=== PATIENT | female | born 1985 | race Caucasian/White ===

== ENCOUNTER → 2019-05-08 | Outpatient (CLI) | payer BC | LOC: CARD 12:31 | PROVIDERS: ATTEND Family Medicine | DX: Z82.79 Family history of other congenital malformations, deformations and chromosomal abnormalities (principal) | CPT/HCPCS: 93306 ==

== ENCOUNTER 2019-05-27 06:00 | Inpatient (IN) | payer BC, MEDICAID ==
[2019-05-27] VITALS (50 sets, daily range): BP systolic 92–135; BP diastolic 47–73
[~2019-05-27] VITALS: Ht 170.2 cm; Wt 84.6 kg
--- NOTE | 2019-05-27 06:45 | NUR ---
DORY ROBLES presented to unit via ambulation from ED, accompanied by SO , with plan of a 39 WEEKS AT INDUCTION. DORY ROBLES weighed, gowned, voided, and to bed. EFHM and TOCO applied, VS taken. DORY ROBLES oriented to bed controls, call light, TV, heat, and A/C controls.
--- NOTE | 2019-05-27 07:10 | NUR ---
THIS RN RECEIVED PT REPORT FROM JOAN MALDONADO. JOAN STATES SHE TALKED TO DR LONG AT 0705 AND RECEIVED TELE INDUCTION ORDERS. DR LONG WANTS TO START PITOCIN, PT MAY GET EPIDURAL. GIVE 25 MG OF BENADRYL 30MIN BEFORE ADMIN OF VANCOMYCIN FOR GBS +
--- NOTE | 2019-05-27 07:15 | NUR ---
THIS RN INTRODUCES SELF TO PT AND SO. DISCUSSES PLAN OF CARE. PHYSICAL ASSESSMENT COMPLETE, VSS. NEEDS ADDRESSED. CALL LIGHT WITHIN REACH.
--- NOTE | 2019-05-27 07:30 | NUR ---
RN CALLS [facility] FOR RECORDS
[2019-05-27] MEDS ORDERED: OXYTOCIN/NORMAL SALINE 500 ML IV SCH ×2 (07:35→18:30)
[2019-05-27] MEDS ORDERED: D5 LR IV SOLUTION 1,000 ML IV ONE (07:41)
[2019-05-27] MEDS ORDERED: diphenhydrAMINE 50 MG/ML INJ (BENADRYL) IV NR (07:45)
[2019-05-27] MEDS ORDERED: VANCOMYCIN INJECTION 1,000 MG in NS (IVPB) 250 ML IV SCH (07:45)
[2019-05-27] MEDS ORDERED: diphenhydrAMINE 50 MG/ML INJ (BENADRYL) IM NR (07:45)
[2019-05-27 08:25] LABS: BASOPHILS % (AUTO) 0 % (0-10); EOSINOPHILS # (AUTO) 0.1 10^3/uL (0.0-0.3); EOSINOPHILS % (AUTO) 1 % (0-10); HEMATOCRIT 26 % (35-52); HEMOGLOBIN 7.5 G/DL (11.5-16.0); LYMPHOCYTES # (AUTO) 1.8 X 10^3 (1.0-4.0); LYMPHOCYTES % (AUTO) 19 % (12-44); MEAN CORPUSCULAR HEMOGLOBIN 21 PG (25-34); MEAN CORPUSCULAR HGB CONC 29 G/DL (32-36); MEAN CORPUSCULAR VOLUME 71 FL (80-99); MEAN PLATELET VOLUME 9.9 FL (7.4-10.4); MONOCYTES # (AUTO) 0.7 X 10^3 (0.0-1.0); MONOCYTES % (AUTO) 7 % (0-12); NEUTROPHILS # (AUTO) 6.9 X 10^3 (1.8-7.8); NEUTROPHILS % (AUTO) 73 % (42-75); PLATELET COUNT 236 10^3/uL (130-400); RED CELL DISTRIBUTION WIDTH 17.9 % (10.0-14.5); WHITE BLOOD COUNT 9.4 10^3/uL (4.3-11.0)
[2019-05-27] MEDS: D5 LR IV SOLUTION 1,000 ML IV SCH ×2 (08:32→16:20)
--- NOTE | 2019-05-27 09:00 | NUR ---
RN CALLS [facility] AGAIN FOR RECORDS, CORRECT FAX NUMBER HAS BEEN GIVEN.
[2019-05-27] MEDS ORDERED: SUFENTA 0.6MCG/ML BUPIVA 0.125 100 ML ONE (10:23)
--- NOTE | 2019-05-27 10:30 | NUR ---
RN CALLS [facility] AGAIN FOR RECORDS. STILL HAVE NOT RECEIVED.
[2019-05-27] MEDS ORDERED: fentaNYL INJECTION 100 MCG/2 ML AMP ONE (10:33)
[2019-05-27] MEDS ORDERED: LIDOCAINE PF 2% 5 ML (XYLOCAINE) VIAL ONE (10:33)
[2019-05-27] MEDS ORDERED: BUPIVACAINE 0.25% 30 ML (SENSORCAINE) VIAL ONE (10:33)
[2019-05-27] MEDS ORDERED: LACTATED RINGERS 1,000 ML IV ONE ×2 (10:58)
[2019-05-27] MEDS ORDERED: NALOXONE 0.4 MG/ML 1 ML (NARCAN) VIAL IV PRN (11:00)
[2019-05-27] MEDS ORDERED: EPIDURAL (SUFENTA 0.6MCG/ML BUPIVA 0.125%) 100 ML BAG EPI PRN (11:00)
[2019-05-27] MEDS ORDERED: ONDANSETRON 4 MG/2 ML (SDV) Z0FRAN IV PRN (11:00)
--- NOTE | 2019-05-27 13:03 | NUR ---
THIS RN CALLS DR LONG WITH UPDATED PT REPORT. PT COMFORTABLE WITH EPIDURAL, PITOCIN RATE AT 16 CURRENTLY. UC PATTERN AND FHT DESCRIBED. RECENT SVE /-2 WITH FOREBAG THAT MAY NEED TO BE RE-RUPTURED. DR ARTHUR HAD DIFFICULT TIME BREAKING WATER THIS AM AND HAVE HAD SCANT AMOUNT OF FLUID RETURN. DR LONG STATES SHE WILL SEE IF DR ARTHUR IS STILL IN HOSPITAL TO RE-BREAK WATER. IF NOT, THEN DR LONG WILL COME AFTER CLINIC TO AR[facility] AGAIN. NO NEW ORDERS RECEIVED.
--- NOTE | 2019-05-27 14:30 | NUR ---
[facility] CALLED BY THIS RN FOR RECORDS.
--- NOTE | 2019-05-27 15:22 | NUR ---
DR LONG CALLED BY THIS RN WITH UPDATED PT REPORT. 2 WITH FOREBAG, NO PRESSURE ON CERVIX. DR SAMS IS ON LD FLOOR FOR A DELIVERY, THIS RN WILL ASK DR SAMS TO BREAK WATER ON DR SOLIS PT, DR LONG STILL IN [facility]. DR LONG PLANS TO SEE PT AFTER HER CLINIC. NO NEW ORDERS AT THIS TIME.
--- NOTE | 2019-05-27 16:06 | Progress Note ---
Standard Progress Note Progress Notes/Assess & Plan Date Seen by a Provider: May 27, 2019 Time Seen by a Provider: 15:50 Progress/Assessment & Plan I was asked to Artificially Rupture Membranes of Ms. Luna by Dr. Snow. Cervix: 4 cm/50%/-3 Vertex/AROM (fluid clear). ARLETH Cabello DO May 27, 2019 16:06
--- NOTE | 2019-05-27 16:30 | NUR ---
RN HAS NOT RECEIVED RECORDS FROM [facility] REGARDLESS OF MULTIPLE ATTEMPTS. AFTER HOURS AT THIS TIME. WILL PASS ON TO ONCOMING SHIFT ABOUT SITUATION.
--- NOTE | 2019-05-27 17:14 | NUR ---
DR LONG CALLED BY THIS RN WITH UPDATED PT REPORT. SVE /-2 WITH LARGE AMOUNT OF FLUID RETURN. PT STATES THAT SHE FEELS DIFFERENT, C/O NAUSEA, AND GETTING SHAKY. DR LONG STATES PT TRANSITIONED VERY FAST WITH HER LAST DELIVERY. DR LONG WILL HEAD THIS WAY NOW.
--- NOTE | 2019-05-27 17:59 | History & Physical-OB ---
OB - Chief Complaint & HPI Date/Time Date of Admission: Date of Admission: May 27, 2019 at 06:32 Date seen by a Provider: May 27, 2019 Time Seen by a Provider: 17:57 Chief Complaint/History OB-Reason for Admission/Chief: Induction of Labor Hx : 3 Hx Para: 2 Expected Date of Delivery: Jun 03, 2019 Gestational Age in Weeks: 39 Gestational Age in Days: 0 Indication for induction: maternal discomfort Admission Nurse Assessment Rev: Yes Allergies and Home Medications Allergies Coded Allergies: Penicillins (Verified Allergy, Severe, rash, 05/27/19) Home Medications No Active Prescriptions or Reported Meds Patient Home Medication List Home Medication List Reviewed: Yes OB - History Hx of Present Care: Yes Ultrasounds: Normal mid trimester US Obstetrical Complications: None Medical Complications: None Delivery History Adverse Rxn to Tranfusion: No Patient Past Medical History previously healthy Social History/Family History Recent Infectious Disease Expo: No Alcohol Use: Denies Use Recreational Drug Use: No Immunizations Date of Influenza Vaccine: May 23, 2019 OB - Admission Exam Physical Exam Vitals: Vital Signs 05/27/19 05/27/19 05/27/19 11:30 13:00 14:15 Temp 36.7 Pulse 67 Resp 18 B/P (MAP) 107/60 (76) Pulse Ox 100 O2 Delivery Room Air HEENT: NCAT Heart: Rhythm Normal Lungs: Clear Abdomen: Gravid Extremities: Normal Reflexes: Normal Cervical Dilatation: 7cm Effacement: 100% Station: -1 Membranes: Ruptured Amniotic Fluid: Clear Heart Rate: 130's Accelerations: Accelerations Present Decelerations: Variable Decelerations Short Term Variability: Present Electric Distribution Checker Variability: Average (6-25) Contractions on Admission: < 5 Minutes Apart Labs Laboratory Tests Test 05/27/19 08:10 Range/Units White Blood Count 9.4 4.3-11.0 10^3/uL Red Blood Count 3.62 L 4.35-5.85 10^6/uL Hemoglobin 7.5 L 11.5-16.0 G/DL Hematocrit 26 L 35-52 % Mean Corpuscular Volume 71 L 80-99 FL Mean Corpuscular Hemoglobin 21 L 25-34 PG Mean Corpuscular Hemoglobin Concent 29 L 32-36 G/DL Red Cell Distribution Width 17.9 H 10.0-14.5 % Platelet Count 236 130-400 10^3/uL Mean Platelet Volume 9.9 7.4-10.4 FL Neutrophils (%) (Auto) 73 42-75 % Lymphocytes (%) (Auto) 19 12-44 % Monocytes (%) (Auto) 7 0-12 % Eosinophils (%) (Auto) 1 0-10 % Basophils (%) (Auto) 0 0-10 % Neutrophils # (Auto) 6.9 1.8-7.8 X 10^3 Lymphocytes # (Auto) 1.8 1.0-4.0 X 10^3 Monocytes # (Auto) 0.7 0.0-1.0 X 10^3 Eosinophils # (Auto) 0.1 0.0-0.3 10^3/uL Basophils # (Auto) 0.0 0.0-0.1 10^3/uL OB - Assessment/Plan/Diagnosis Assessment Assessment: group B positive strep, induction of labor Admission Dx Induction of labor at 39 0/7 wga. GBS positive. Admission Status: Inpatient Order (span 2 midnights) Reason for Inpatient Admission: Induction of labor. Plan Induction Method: per Pitocin Protocol RANI LONG MD May 27, 2019 17:59
[2019-05-27] MEDS ORDERED: TETANUS,DIPTH,PERTUSS P/F (BOOSTRIX) 0.5 ML VIAL IM ONE (18:30)
[2019-05-27] MEDS ORDERED: WITCH HAZEL(TUCKS) 40 EA JAR TOP PRN (18:30)
[2019-05-27] MEDS ORDERED: MEASLES,MUMPS,RUBELLA 1 EA INJ SQ ONE (18:30)
[2019-05-27] MEDS ORDERED: BENZOCAINE/MENTHOL (DERMOPLAST) 56 ML CAN TP PRN (18:30)
--- NOTE | 2019-05-27 18:35 | OB Labor & Delivery Record ---
Vag Delivery Note Vag Delivery Note Date of Delivery: 05/27/19 Preoperative Diagnosis: Marti Luna is a (33 /Para 3 / 2,Gestational Age (wks)39with [0 days] Postoperative Diagnosis: Same Surgeon: RANI LONG Aircraft Armament Mechanic: [none] Anesthesia: [epidural] Delivery Type: [] Findings: [] Viable [male] infant, apgars [8/9], weight [9 pounds 14 ounces] Lacerations: Intact placenta with 3 vessel cord. 2 loose nuchal cords Estimated Blood Loss: [350] ml Complications: None Condition: Stable Description of Procedure: The patient is a 33 year old female who presented [for induction of labor]. She was admitted and informed consent was obtained. Her labor course was remarkable for [nothing] She progressed to complete dilatation and began to push. She was then set up for delivery. The infant's head was delivered atraumatically in the [OA] position. The shoulders and remainder of the infant's body were then delivered without difficulty. Upon delivery, the head was held below the level of the perineum and the mouth and nares were bulb suctioned. The cord was doubly clamped and cut after 60 seconds on maternal abdomen. An intact placenta with 3-vessel cord delivered via Nirav and there was found to be minimal bleeding.~ Vigorous fundal massage was performed and the fundus was found to be firm. IV oxytocin was given. Examination of the vagina and perineum revealed no lacerations. Following the repair, sponge, instrument and needle counts were correct. Mom and baby were both in stable condition in the labor suite. Vitals - Labs Vital Signs - I&O Vital Signs Date Time Temp Pulse Resp B/P (MAP) Pulse Ox O2 Delivery O2 Flow Rate FiO2 05/27/19 14:15 36.7 67 107/60 (76) Room Air 05/27/19 14:00 69 101/55 (70) Room Air 05/27/19 13:45 36.3 61 106/55 (72) Room Air 05/27/19 13:30 61 102/57 (72) Room Air 05/27/19 13:15 65 110/56 (74) Room Air 05/27/19 13:00 36.9 63 18 110/58 (75) Room Air 05/27/19 12:45 63 111/57 (75) Room Air 05/27/19 12:30 65 112/55 (74) Room Air 05/27/19 12:15 82 100/53 (69) Room Air 05/27/19 12:00 36.9 69 108/52 (70) Room Air 05/27/19 11:45 71 16 120/58 (78) Room Air 05/27/19 11:30 71 123/56 (78) 100 Room Air 05/27/19 11:15 77 99/56 (70) Room Air 05/27/19 11:00 71 114/58 (76) Room Air 05/27/19 10:45 78 135/63 (87) Room Air 05/27/19 10:30 71 121/68 (85) Room Air 05/27/19 10:15 37.0 67 18 117/65 (82) Room Air 05/27/19 10:00 Room Air 05/27/19 09:45 74 112/55 (74) Room Air 05/27/19 09:30 70 98/52 (67) Room Air 05/27/19 09:15 67 96/54 (68) Room Air 05/27/19 09:00 75 16 112/63 (79) Room Air 05/27/19 07:30 36.9 76 16 100 Room Air Labs Laboratory Tests 05/27/19 08:10: White Blood Count 9.4, Red Blood Count 3.62L, Hemoglobin 7.5L, Hematocrit 26L, Mean Corpuscular Volume 71L, Mean Corpuscular Hemoglobin 21L, Mean Corpuscular Hemoglobin Concent 29L, Red Cell Distribution Width 17.9H, Platelet Count 236, Mean Platelet Volume 9.9, Neutrophils (%) (Auto) 73, Lymphocytes (%) (Auto) 19, Monocytes (%) (Auto) 7, Eosinophils (%) (Auto) 1, Basophils (%) (Auto) 0, Neutrophils # (Auto) 6.9, Lymphocytes # (Auto) 1.8, Monocytes # (Auto) 0.7, Eosinophils # (Auto) 0.1, Basophils # (Auto) 0.0 RANI LONG MD May 27, 2019 18:35
--- NOTE | 2019-05-27 19:00 | NUR ---
180: ROOM SET UP FOR DELIVERY, DR LONG AT BEDSIDE. 1806: POONAM GALLARDO, 750 ML OUT OF URINE 1811: BEGIN PUSHING 1811: HEAD DELIVERED SPONTANEOUSLY 1812: SPONTANEOUSLY VAGINAL OF VIABLE MALE INFANT BY DR LONG 1814: CORD CLAMPED BY DR LONG AND CUT BY AT BEDSIDE 1817: PLACENTA DELIVERED 1819: PERICARE DONE BY THIS RN, LINEN CHANGE, BED PUT BACK TOGETHER. RECOVERY PERIOD BEGINS. FUNDUS 1 BELOW UMBILICUS, MIDLINE, FIRM, MODERATE BLEEDING. VSS. CALL LIGHT WITHIN REACH. 183: FUNDUS 1 BELOW UMBILICUS, MIDLINE, FIRM, MODERATE BLEEDING. VSS. CALL LIGHT WITHIN REACH. 1850: FUNDUS AT LEVEL OF UMBILICUS, MIDLINE, FIRM, MODERATE BLEEDING. VSS. CALL LIGHT WITHIN REACH. 1905: FUNDUS AT LEVEL OF UMBILICUS, MIDLINE, FIRM, MODERATE BLEEDING. VSS. PAD CHANGED, PERICARE, LINEN CHANGE PER PT REQUEST. CALL LIGHT WITHIN REACH. PT REPORT GIVEN TO JOAQUINERICA
--- NOTE | 2019-05-27 19:50 | NUR ---
IV TO [facility] LOCK AT THIS TIME IV PITOCIN IS INFUSED. MANY FAMILY MEMBERS PRESENT. PT REPORTS FEELING GREAT AND DENIES ANY NEEDS OR C/O'S.
--- NOTE | 2019-05-27 20:20 | NUR ---
PT'S HELPED HER UP TO BATHROOM WITHOUT NURSE PRESENT. PT BECAME VERY SHAKY. ALERTED NURSE AFTER PT SAFELY BACK IN BED. UPON ENTERING ROOM, NOTED PT TO BE TREMBLING FROM HEAD TO TOE, WITH TEETH CHATTERING. PT STATES SHE HAS NEVER HAD THIS RESPONSE. VSS. PT BEGINNING TO STILL WITH RELAXING IN BED. WILL CALL DR LONG TO REPORT.
--- NOTE | 2019-05-27 20:45 | NUR ---
CALL TO DR LONG. NO NEW ORDERS.
[2019-05-27] MEDS: DOCUSATE SODIUM 100 MG (COLACE) CAP PO SCH (20:50)
--- NOTE | 2019-05-27 21:40 | NUR ---
PT HAS FINISHED EATING AND IS FEELING GOOD. WILL ASSIST TO W/C AND TRANSFER TO ROOM. UPON TRANSFERRING PT TO W/C, AGAIN PT BECOMES SHAKEY. DENIES ANY LIGHTHEADEDNESS OR DIZZINESS. TAKEN INTO BATHROOM AND VOIDED WITHOUT DIFFICULTY.
[2019-05-27] MEDS ORDERED: CATHETER FLUSH 10 ML SYR IV SCH (22:00)
--- NOTE | 2019-05-27 23:00 | NUR ---
PT AMB TO BATHROOM. LESS SHAKY THAN PREVIOUS TRIP UP. VOIDED.
[2019-05-28 02:15] VITALS: BP 103/54
--- NOTE | 2019-05-28 02:20 | NUR ---
PT UP TO BATHROOM AMBULATORY. LESS SHAKY THIS TIME. VOIDED WITHOUT DIFFICULTY. YARED WELL.
[2019-05-28] MEDS: IBUPROFEN 600 MG (MOTRIN) TAB PO SCH ×4 (02:23→20:53)
[2019-05-28] MEDS: ACETAMINOPHEN 500 MG TAB (TYLENOL) PO SCH ×3 (04:44→17:05)
[2019-05-28 06:10] LABS: BASOPHILS % (AUTO) 0 % (0-10); EOSINOPHILS # (AUTO) 0.1 10^3/uL (0.0-0.3); EOSINOPHILS % (AUTO) 1 % (0-10); HEMATOCRIT 23 % (35-52); LYMPHOCYTES # (AUTO) 1.9 X 10^3 (1.0-4.0); LYMPHOCYTES % (AUTO) 16 % (12-44); MEAN CORPUSCULAR HEMOGLOBIN 21 PG (25-34); MEAN CORPUSCULAR HGB CONC 29 G/DL (32-36); MEAN CORPUSCULAR VOLUME 72 FL (80-99); MEAN PLATELET VOLUME 9.8 FL (7.4-10.4); MONOCYTES # (AUTO) 0.9 X 10^3 (0.0-1.0); MONOCYTES % (AUTO) 7 % (0-12); NEUTROPHILS # (AUTO) 9.4 X 10^3 (1.8-7.8); NEUTROPHILS % (AUTO) 77 % (42-75); PLATELET COUNT 194 10^3/uL (130-400); RED CELL DISTRIBUTION WIDTH 17.4 % (10.0-14.5); WHITE BLOOD COUNT 12.3 10^3/uL (4.3-11.0)
--- NOTE | 2019-05-28 06:10 | NUR ---
PT SITTING UP IN BED . CRAMPING, BUT NO OTHER C/O'S.
[2019-05-28 06:13] LABS: HEMOGLOBIN 6.6 G/DL (11.5-16.0)
[2019-05-28] MEDS ORDERED: FERROUS SULF 325 MG (IRON) TAB PO ONE (09:24)
[2019-05-28] MEDS ORDERED: PRENATAL VITAMIN 1 EA TAB PO ONE (09:24)
--- NOTE | 2019-05-28 09:26 | NUR ---
Dr Mcmanus to see patient and review plan of care.
[2019-05-28] MEDS: DOCUSATE SODIUM 100 MG (COLACE) CAP PO SCH ×2 (09:28→20:53)
[2019-05-28 09:37] VITALS: BP 104/56
--- NOTE | 2019-05-28 09:58 | Anesthesia-Regional Post-Op ---
Regional Patient Condition Mental Status: Alert, Oriented x3 Circulation: Same as Pre-Op Headache: Absent Sensation: Full Recovery Motor Block: Absent Post Op Complications Complications None Follow Up Care/Instructions Patient Instructions None needed. Anesthesia/Patient Condition Patient is doing well, no complaints, stable vital signs, no apparent adverse anesthesia problems. No complications reported per nursing. CHEYENNE MONCADA CRNA May 28, 2019 09:58
--- NOTE | 2019-05-28 11:01 | NUR ---
pt had been up to shower. warm blanket given per pt request to place on abd for cramping.
--- NOTE | 2019-05-28 11:25 | NUR ---
Rubella lab not drawn with labs. Dr Mcmanus notified and new order for rubella to be drawn
[2019-05-28 13:26] VITALS: BP 120/67
[2019-05-28] MEDS: FERROUS SULF 325 MG (IRON) TAB PO SCH (17:05)
[2019-05-28 17:06] VITALS: BP 109/57
--- NOTE | 2019-05-28 19:25 | Postpartum Progress Note ---
Note Note Day # 1 Subjective: Patient is without complaints. Ambulating, voiding. Tolerating a regular diet without nausea or vomiting. Normal lochia. Pain is well controlled with oral pain medications. breast feeding infant well. Objective: Physical Exam: General - Alert and oriented, no apparent distress Abdomen - Soft, appropriately tender to palpation, non-distended, fundus firm at umbilicus Extremities - no edema, negative Jeff's bilaterally Assessment: 33yo G3 now P3 post- day # 1, status post uncomplicated . Recovering well, hemodynamically stable Post Anemia, start iron BID x 2 weeks then daily, recheck H/H in AM Plan: Routine care. Encourage breast feeding. Encourage ambulation. Ferrous sulfate supplementation BID Plan for discharge in AM with 6 week post visit with Edy Vitals - Labs Vital Signs - I&O Vital Signs Date Time Temp Pulse Resp B/P (MAP) Pulse Ox O2 Delivery O2 Flow Rate FiO2 05/28/19 17:06 36.6 84 16 109/57 (74) 99 Room Air 05/28/19 13:26 36.5 83 16 120/67 (84) 99 Room Air 05/28/19 09:37 36.5 77 16 104/56 (72) 99 Room Air 05/28/19 02:15 37.0 76 18 103/54 (70) 98 Room Air 05/27/19 20:50 36.7 84 18 132/58 (82) 100 Room Air I & O 05/28/19 07:00 Intake Total 2750 ml Balance 2750 ml Labs Laboratory Tests 05/28/19 06:00: White Blood Count 12.3H, Red Blood Count 3.16L, Hemoglobin 6.6*L, Hematocrit 23L , Mean Corpuscular Volume 72L, Mean Corpuscular Hemoglobin 21L, Mean Corpuscular Hemoglobin Concent 29L, Red Cell Distribution Width 17.4H, Platelet Count 194, Mean Platelet Volume 9.8, Neutrophils (%) (Auto) 77H, Lymphocytes (%) (Auto) 16, Monocytes (%) (Auto) 7, Eosinophils (%) (Auto) 1, Basophils (%) (Auto) 0, Neutrophils # (Auto) 9.4H, Lymphocytes # (Auto) 1.9, Monocytes # (Auto) 0.9, Eosinophils # (Auto) 0.1, Basophils # (Auto) 0.0 CARYL ARTHUR MD May 28, 2019 19:25
[2019-05-28 20:50] VITALS: BP 102/58
[2019-05-29] MEDS: ACETAMINOPHEN 500 MG TAB (TYLENOL) PO SCH ×2 (02:46→09:40)
[2019-05-29] MEDS: IBUPROFEN 600 MG (MOTRIN) TAB PO SCH ×2 (03:09→09:40)
[2019-05-29 03:10] VITALS: BP 106/60
[2019-05-29 06:05] LABS: HEMOGLOBIN 6.3 G/DL (11.5-16.0)
[2019-05-29] MEDS ORDERED: PRENATAL VITAMIN 1 EA TAB PO SCH (07:00)
[2019-05-29 08:00] VITALS: BP 137/60
--- NOTE | 2019-05-29 08:00 | NUR ---
A.M. ASSESSMENT COMPLETED. VSS. CARING FOR IN ROOM. GOOD INTERACTION NOTED.
[2019-05-29] MEDS: FERROUS SULF 325 MG (IRON) TAB PO SCH (08:21)
[2019-05-29] MEDS: DOCUSATE SODIUM 100 MG (COLACE) CAP PO SCH (09:40)
--- NOTE | 2019-05-29 09:51 | Discharge Summary ---
Diagnosis/Chief Complaint Date of Admission May 27, 2019 at 06:32 Date of Discharge 05/29/2019 Admission Diagnosis Admission Diagnosis Term 39 week gestation Discharge Diagnosis Term vaginal delivery 39 completed weeks of Post anemia Discharge Summary-Simple/Stand Procedures Epidural Placement AROM Discharge Physical Examination Allergies: Coded Allergies: Penicillins (Verified Allergy, Severe, rash, 05/27/19) Vitals & I&Os Vital Sign - Last 12Hours Date Time Temp Pulse Resp B/P (MAP) Pulse Ox O2 Delivery O2 Flow Rate FiO2 05/29/19 03:10 36.7 71 16 106/60 (75) 100 Room Air Intake and Output 05/29/19 00:00 Intake Total 930 ml Balance 930 ml General Appearance: Alert, Oriented X3, Cooperative, No Acute Distress HEENT: Mucous Memb Moist/[place] Respiratory: Clear to Auscultation, Normal Air Movement Cardiovascular: Regular Rate, No Murmurs Abdominal: Normal Bowel Sounds, Soft, No Tenderness, No Masses, Other (Fundus firm and below umbilicus) Extremities: No Edema, No Tenderness/Swelling Skin: No Rashes Neuro: Strength at 5/5 X4 Ext, Cranial Nerves 3-12 NL Psych/Mental Status: Mental Status NL, Mood NL Hospital Course See final discharge diagnosis. Pending Labs Needs repeat Hgb at post visit Discussion & Recommendations 33 yo G3 now P3 delivered term male via . Complicated with post anemia. Started on iron BID x 2 weeks then daily. Will need f.u Hgb at post visit. Doing well at discharge. Discharge Condition at discharge stable Instructions to patient/family Please see electronic discharge instructions given to patient. Discharge Medications Reviewed and agree with Discharge Medication list on patient's Discharge Instruction sheet Clinical Quality Measures DVT/VTE Risk/Contraindication: Risk Factor Score Per Nursin RFS Level Per Nursing on Admit: 1=Low/No VTE PPX Copy Copies To 1: RANI LONG MD, HOLLY R MD May 29, 2019 09:51
[2019-05-29] MEDS ORDERED: IBUP-844 PO (09:52)
[2019-05-29] MEDS ORDERED: FERR325T18 PO (09:52)
--- NOTE | 2019-05-29 09:54 | Discharge Instructions ---
Discharge Inst-[facility] Reconcile Patient Problems Problems Reviewed?: Yes Depart Medications New, Converted or Re-Newed RX: RX on Chart New Medications: Ferrous Sulfate (Ferrous Sulfate) 325 Mg Tablet 325 MG PO BID WITH MEALS for 30 Days, #60 TAB Ibuprofen (Ibu) 600 Mg Tablet 600 MG PO Q6HR, #90 TAB Follow Up/Instructions Goal/Follow Up: [address] Long Activity Activity: Activity as Tolerated Driving Instructions: You May Drive NO SMOKING: NO SMOKING Nothing Inside Vagina: No Douching, No [place], No Tampons Diet Discharge Diet: No Restrictions Symptoms to Report to : Swelling Increased, Bleeding Excessive, Pain Increased, Lightheadedness, Dizziness/Fainting, Nausea/Vomiting, Shortness of Breath For Any Problems or Questions: Contact Your Physician Copies To 1: RANI LONG MD, HOLLY R MD May 29, 2019 09:54
--- NOTE | 2019-05-29 10:00 | NUR ---
DOING WELL. OFFERS NO COMPLAINTS.
--- NOTE | 2019-05-29 11:30 | NUR ---
DISCHARGE INSTRUCTIONS REVIEWED WITH COPY TO PT. STATES UNDERSTANDING OF ALL INSTRUCTIONS AND NEED TO F/U SCHEDULED AND NEEDED. RX CALLED TO [facility] IN [facility].
[2019-05-29 12:20] VITALS: BP 137/60
--- NOTE | 2019-05-29 12:20 | NUR ---
DISMISSED AMB FROM [facility] WITH IN STABLE CONDITION TO FAMILY CAR [facility] BY SPOUSE AND DINA MALDONADO.
== END 2019-05-29 12:20 | disposition home or self-care (01) | DRG 807 ==
LOC: LDRP 06:32
PROVIDERS: ADMIT Family Medicine; ATTEND Family Medicine
PROC: 10E0XZZ Delivery of Products of Conception, External Approach (ICD-10-PCS; principal; 2019-05-27)
PROC: 3E033VJ Introduction of Other Hormone into Peripheral Vein, Percutaneous Approach (ICD-10-PCS; 2019-05-27)
DX: O99.824 Streptococcus B carrier state complicating childbirth (principal); O69.81X0 Labor and delivery complicated by cord around neck, without compression, not applicable or unspecified; O90.81 Anemia of the puerperium; Z3A.39 39 weeks gestation of pregnancy; Z37.0 Single live birth; Z88.0 Allergy status to penicillin
CPT/HCPCS: 36415; 85014; 85018; 85025; 86762; 86850; 86900; 86901

== ENCOUNTER → 2021-04-14 | Outpatient (CLI) | payer MEDICAID, BC ==
[~2021-04-14] MED LIST: FERR325T18 PO; IBUP-844 PO
== END ==
LOC: LABNPT 14:50
PROVIDERS: ATTEND Family Medicine
DX: Z34.91 Encounter for supervision of normal pregnancy, unspecified, first trimester (principal); Z3A.00 Weeks of gestation of pregnancy not specified
CPT/HCPCS: 87070; 87205

== ENCOUNTER 2021-04-30 11:16 | Outpatient (CLI) | payer MEDICAID ==
[~2021-04-30] VITALS: Ht 172.7 cm; Wt 85.7 kg
[2021-04-30 11:10] VITALS: BP 132/60
[2021-04-30 11:15] VITALS: BP 132/60
[2021-04-30 11:40] VITALS: BP 132/60
[2021-04-30 11:45] LABS: BILIRUBIN,URINE NEGATIVE (NEGATIVE); CLARITY,URINE CLEAR; COLOR,URINE YELLOW; GLUCOSE, URINE (UA) NEGATIVE (NEGATIVE); KETONES,URINE NEGATIVE (NEGATIVE); LEUKOCYTE ESTERASE ,URINE 1+ (NEGATIVE); NITRITE,URINE NEGATIVE (NEGATIVE); PROTEIN,URINE NEGATIVE (NEGATIVE)
[2021-04-30 11:57] LABS: BACTERIA,URINE TRACE /HPF; RBC,URINE RARE /HPF
[2021-04-30] MEDS ORDERED: PREN1TAB79 PO (12:03)
[2021-04-30 12:30] VITALS: BP 132/60
--- NOTE | 2021-05-03 08:44 | Physician Query-Final Dx ---
COLEEN BENNETT 05/03/21 0844: Clinic Account Progress/Dx Physician Query: Please give diagnosis Please include # weeks gestation Date of Service Apr 30, 2021 at 11:16 ANITA FANG MD 05/03/21 1510: Clinic Account Progress/Dx DIAGNOSIS: Diagnosis 37 weeks gestation with decreased movement COLEEN BENNETT May 03, 2021 08:44 ANITA FANG MD May 03, 2021 15:10
== END 2021-04-30 12:30 | disposition home or self-care (01) ==
LOC: WSo 11:16 → LDRP 11:17 → WSo 12:30
PROVIDERS: ATTEND Obstetrics & Gynecology
DX: O36.8130 Decreased fetal movements, third trimester, not applicable or unspecified (principal); Z3A.37 37 weeks gestation of pregnancy
CPT/HCPCS: 81000; 99213

== ENCOUNTER 2021-05-13 11:05 | Inpatient (IN) | payer MEDICAID ==
[2021-05-13] VITALS (33 sets, daily range): BP systolic 94–131; BP diastolic 51–71
[~2021-05-13] VITALS: Ht 170.2 cm; Wt 85.2 kg
[~2021-05-13 11:05] MED LIST changes: +PREN1TAB79 PO
[2021-05-13] MEDS ORDERED: FERR325T18 PO (11:23)
[2021-05-13] MEDS ORDERED: OXYTOCIN PRE-MIX DRIP 500 ML IV SCH ×2 (11:30→20:00)
[2021-05-13] MEDS ORDERED: LIDOCAINE/EPI 2% 1:200,00 (XYLOCAINE) 20 ML VIAL INJ PRN (11:30)
[2021-05-13] MEDS ORDERED: D5 LR IV SOLUTION 1,000 ML IV SCH (11:30)
[2021-05-13 12:13] LABS: BASOPHILS % (AUTO) 0 % (0-10); EOSINOPHILS % (AUTO) 0 % (0-10); HEMATOCRIT 37 % (35-52); HEMOGLOBIN 12.6 g/dL (11.5-16.0); LYMPHOCYTES # (AUTO) 1.7 10^3/uL (1.0-4.0); LYMPHOCYTES % (AUTO) 14 % (12-44); MEAN CORPUSCULAR HEMOGLOBIN 33 pg (25-34); MEAN CORPUSCULAR HGB CONC 34 g/dL (32-36); MEAN CORPUSCULAR VOLUME 97 fL (80-99); MEAN PLATELET VOLUME 10.5 fL (9.0-12.2); MONOCYTES # (AUTO) 0.9 10^3/uL (0.0-1.0); MONOCYTES % (AUTO) 8 % (0-12); NEUTROPHILS # (AUTO) 9.5 10^3/uL (1.8-7.8); NEUTROPHILS % (AUTO) 77 % (42-75); PLATELET COUNT 206 10^3/uL (130-400); WHITE BLOOD COUNT 12.4 10^3/uL (4.3-11.0)
[2021-05-13 12:16] LABS: BILIRUBIN,URINE NEGATIVE (NEGATIVE); CLARITY,URINE CLEAR; COLOR,URINE YELLOW; GLUCOSE, URINE (UA) NEGATIVE (NEGATIVE); KETONES,URINE NEGATIVE (NEGATIVE); LEUKOCYTE ESTERASE ,URINE 3+ (NEGATIVE); NITRITE,URINE NEGATIVE (NEGATIVE); PROTEIN,URINE NEGATIVE (NEGATIVE)
[2021-05-13 12:33] LABS: BACTERIA,URINE FEW /HPF; RBC,URINE RARE /HPF
[2021-05-13] MEDS ORDERED: CATHETER FLUSH 10 ML SYR IV SCH (14:00)
[2021-05-13] MEDS ORDERED: METHYLERGONOVINE 0.2 MG/ML (METHERGINE) AMP ONE (18:16)
[2021-05-13] MEDS ORDERED: KETOROLAC 30 MG/ML VIAL ONE (18:25)
[2021-05-13] MEDS ORDERED: KETOROLAC 30 MG/ML VIAL IVP ONE (20:00)
[2021-05-13] MEDS ORDERED: BENZOCAINE/MENTHOL (DERMOPLAST) 56 ML CAN TP PRN (20:00)
[2021-05-13] MEDS ORDERED: WITCH HAZEL(TUCKS) 40 EA JAR TOP PRN (20:00)
[2021-05-13] MEDS ORDERED: METHYLERGONOVINE 0.2 MG/ML (METHERGINE) AMP IM ONE (20:00)
--- NOTE | 2021-05-13 21:15 | History & Physical-OB ---
OB - Chief Complaint & HPI Date/Time Date of Admission: Date of Admission: May 13, 2021 at 11:05 Date seen by a Provider: May 13, 2021 Time Seen by a Provider: 12:55 Chief Complaint/History OB-Reason for Admission/Chief: Induction of Labor Hx : 4 Hx Para: 3 Expected Date of Delivery: May 17, 2021 Gestational Age in Weeks: 39 Gestational Age in Days: 3 Indication for induction: maternal discomfort Admission Nurse Assessment Rev: Yes History of Labs GBS neg Allergies and Home Medications Allergies Coded Allergies: Penicillins (Verified Allergy, Severe, rash, 05/27/19) Patient Home Medication List Home Medication List Reviewed: Yes Ferrous Sulfate (Ferrous Sulfate) 325 Mg Tablet, 325 MG PO DAILY Prescribed by: LEROY SANDOVAL on 05/13/21 1123 Last Action: New Order Vit W-Ca,Fe,FA(<1 mg) ( Vitamins) 1 Each Tablet, 1 EACH PO DAILY, (Reported) Entered as Reported by: JANET PUENTE on 04/30/21 1203 Last Action: Last Taken Edited OB - History Hx of Present Care: Yes Ultrasounds: Normal mid trimester US Obstetrical Complications: None Medical Complications: None Delivery History Adverse Rxn to Tranfusion: No Patient Past Medical History previously healthy Social History/Family History 2nd Hand Smoke Exposure: No Immunizations Date of Influenza Vaccine: May 23, 2019 OB - Admission Exam Physical Exam Vitals: Vital Signs 05/13/21 05/13/21 05/13/21 11:00 15:45 16:00 Temp 37.1 Pulse 80 Resp 18 B/P (MAP) 99/54 (69) Pulse Ox 96 O2 Delivery Room Air HEENT: NCAT Heart: Rhythm Normal Lungs: Clear Abdomen: Gravid Extremities: Normal Reflexes: Normal Cervical Dilatation: 3cm Effacement: 75% Station: -2 Membranes: Intact Heart Rate: 130's Accelerations: Accelerations Present Decelerations: No Decelerations Short Term Variability: Present Snf Variability: Average (6-25) Contractions on Admission: 6-10 Minutes Apart Intensity: Mild Jordan Scoring Tool (Modified) Dilation (cm): 3-4cm (2) Effacement (%): 51-79% (2) Descent/Station: -2 (1) Cervix Consistency: Soft (2) Cervix Position: Anterior (2) Jordan Score: 12 Labs Laboratory Tests Test 05/13/21 11:15 05/13/21 11:30 Range/Units White Blood Count 12.4 H 4.3-11.0 10^3/uL Red Blood Count 3.87 3.80-5.11 10^6/uL Hemoglobin 12.6 11.5-16.0 g/dL Hematocrit 37 35-52 % Mean Corpuscular Volume 97 80-99 fL Mean Corpuscular Hemoglobin 33 25-34 pg Mean Corpuscular Hemoglobin Concent 34 32-36 g/dL Red Cell Distribution Width 13.6 10.0-14.5 % Platelet Count 206 130-400 10^3/uL Mean Platelet Volume 10.5 9.0-12.2 fL Immature Granulocyte % (Auto) 2 % Neutrophils (%) (Auto) 77 H 42-75 % Lymphocytes (%) (Auto) 14 12-44 % Monocytes (%) (Auto) 8 0-12 % Eosinophils (%) (Auto) 0 0-10 % Basophils (%) (Auto) 0 0-10 % Neutrophils # (Auto) 9.5 H 1.8-7.8 10^3/uL Lymphocytes # (Auto) 1.7 1.0-4.0 10^3/uL Monocytes # (Auto) 0.9 0.0-1.0 10^3/uL Eosinophils # (Auto) 0.0 0.0-0.3 10^3/uL Basophils # (Auto) 0.0 0.0-0.1 10^3/uL Immature Granulocyte # (Auto) 0.2 H 0.0-0.1 10^3/uL Urine Color YELLOW Urine Clarity CLEAR Urine pH 7.0 5-9 Urine Specific [place] 1.010 L 1.016-1.022 Urine Protein NEGATIVE NEGATIVE Urine Glucose (UA) NEGATIVE NEGATIVE Urine Ketones NEGATIVE NEGATIVE Urine Nitrite NEGATIVE NEGATIVE Urine Bilirubin NEGATIVE NEGATIVE Urine Urobilinogen 0.2 < = 1.0 MG/DL Urine Leukocyte Esterase 3+ H NEGATIVE Urine RBC (Auto) NEGATIVE NEGATIVE Urine RBC RARE /HPF Urine WBC 10-25 H /HPF Urine Squamous Epithelial Cells 5-10 /HPF Urine Crystals NONE /LPF Urine Bacteria FEW H /HPF Urine Casts NONE /LPF Urine Mucus NEGATIVE /LPF Urine Culture Indicated YES OB - Assessment/Plan/Diagnosis Assessment Assessment: induction of labor Admission Dx 35yo @ 39 weeks Elective IOL GBS neg Admission Status: Inpatient Order (span 2 midnights) Reason for Inpatient Admission: 39 week IOL Plan Induction Method: AROM (and pitocin per protocol) SHUBHAM SANCHEZ DO May 13, 2021 21:15
--- NOTE | 2021-05-13 21:21 | OB Labor & Delivery Record ---
L&D History Date of Service Date of Service: May 13, 2021 History Expected Date of Delivery: May 17, 2021 Gestational Age in Weeks: 39 Hx : 4 Hx Para: 3 Complications Events: Routine care (With Dr. Snow, transfer at 36 weeks for delivery at [address]) Operative Indications (Cesarea: N/A-Vaginal Delivery Intrapartal Events: None L&D Stage1 Stage One Onset of Labor - Date: May 13, 2021 Monitors and Tracing Monitor Mode: Internal Heart Rate: 135 Monitor Accelerations: Uniform Monitor Decelerations: Variable Station: -3 Manager Balance Variability: Average (6-10) Short Term Variability: Present Presentation: Vertex Vital Signs VS - Last 72 Hours, by Label 05/13/21 05/13/21 05/13/21 05/13/21 10:46 10:46 11:00 12:45 Temp 36.9 36.9 Pulse 115 115 85 Resp 18 18 18 B/P (MAP) 121/64 (83) 106/55 (72) Pulse Ox 96 96 O2 Delivery Room Air Room Air Room Air Room Air 05/13/21 05/13/21 05/13/21 05/13/21 13:00 13:15 13:30 13:45 Temp 37.5 Pulse 83 89 90 82 Resp 18 18 18 18 B/P (MAP) 108/56 (73) 101/55 (70) 103/55 (71) 111/56 (74) O2 Delivery Room Air Room Air Room Air Room Air 05/13/21 05/13/21 05/13/21 05/13/21 14:00 14:15 14:30 14:45 Temp 37.4 Pulse 84 82 86 92 Resp 18 18 18 18 B/P (MAP) 117/57 (77) 108/56 (73) 109/56 (73) 94/51 (65) O2 Delivery Room Air Room Air Room Air Room Air 05/13/21 05/13/21 05/13/21 05/13/21 15:00 15:15 15:30 15:45 Temp 37.4 Pulse 81 78 78 80 Resp 18 18 18 18 B/P (MAP) 109/59 (76) 95/52 (66) 99/51 (67) 99/54 (69) O2 Delivery Room Air Room Air Room Air Room Air 05/13/21 16:00 Temp 37.1 Resp 18 B/P (MAP) O2 Delivery Room Air Rupture of Membranes Spontaneous Ruture of Membrane: No Amniotic Membrane Rupture Time: 1308 Amniotic Membrane Fluid Desc.: Clear Vaginal Bleeding Description: Normal Show Progress/Notes Patient admitted for elective IOL. AROM performed and low dose pitocin protocol used. SHe progressed to complete and 0 station with no analgesia used L&D Stage2 Stage Two Stage II Date: May 13, 2021 Monitors and Tracing Monitor Mode: Internal Heart Rate: 135 Monitor Decelerations: Prolonged Manager Balance Variability: Average (6-10) Short Term Variability: Present Position: Right Occiput Anterior Presentation: Vertex Signs of Distress by FHT Signs of Distress 3-4 pushes into 2nd stage heart rate experienced prolonged deceleration into the 60s-80s, attempts to resuscitated with O2, and positioning however there was no improvement in heart rate noted, at which point expedited delivery was recommended to the patient. With the next maternal push after a kiwi vacuum extractor was placed on the flexion point on the scalp, 50 mmHg was applied to hand piece and infants head was extended over intact perineum where the suction was released. Cord Descript/Complications Cord Vessel Description: 3 Vessels Complications nuchal cord reduced x 1 Delivery Type Delivery Method: Low Vacuum Extraction Anterior Shoulder: Left Episiotomy/Perineal Laceration Laceraction(s)/Extensions: No Condition of Delivery 1 minute Comment: 8 5 minute Comment: 9 Notes Live male weight 11lbs 10 oz Condition of Infant Condition of : Living Exam: No Observed Abnormalities Resuscitation Resuscitation: N/A - Spontaneous Resp L&D Stage3 Stage Three Stage III Date: May 13, 2021 Pictocin Pitocin Administration mu/min: 10 Pitocin ml/hr: 10 Pitocin Administration Comment: 30 mu wide open at delivery of placenta Placenta Delivery Placenta Delivery: Spontaneous Delivery Summary Summary Estimated blood loss (mL): 350 Attending at delivery: Shubham Sanchez DO Condition of Delivery Examined: Cervix Examined, Uterus Explored Post Hemorrhage: No Intervention Required due to increased bleeding methergine IM was given 0.2 mg IM with administration of IV pitocin. Condition of Mother stable Condition of (s) stable SHUBHAM SANCHEZ DO May 13, 2021 21:20
--- NOTE | 2021-05-13 21:23 | Discharge Inst-Women's Service ---
Discharge Inst-Women's Serv Depart Medication/Instructions New, Converted or Re-Newed RX: Transmitted to Pharmacy Final Diagnosis PPD 2 VAVD Problems Reviewed?: Yes Consults/Follow Up Additional Follow Up: Yes Orders/Referrals Dr. Snow in 6 weeks Activity Activity: Activity as Tolerated Driving Instructions: No Driving for 1 Week NO SMOKING: NO SMOKING Nothing Inside Vagina: No Douching, No [place], No Tampons Diet Discharge Diet: No Restrictions Symptoms to Report to : Bleeding Excessive, Pain Increased, Fever Over 101 Degrees F, Vaginal Bleeding Increase, Questions/Concerns For Any Problems or Questions: Contact Your Physician SHUBHAM SANCHEZ DO May 13, 2021 21:23
[2021-05-13] MEDS ORDERED: ACHD5005 PO (21:25)
[2021-05-13] MEDS ORDERED: IBUP-844 PO (21:25)
[2021-05-13] MEDS ORDERED: DOCU100C37 PO (21:25)
[2021-05-13] MEDS ORDERED: BENZ78AE5 TP (21:25)
[2021-05-13] MEDS: DOCUSATE SODIUM 100 MG (COLACE) CAP PO SCH (23:03)
[2021-05-13] MEDS: IBUPROFEN 600 MG (MOTRIN) TAB PO SCH (23:03)
[2021-05-14] MEDS: HYDROcodone/APAP 5 MG/325 MG (LORTAB) TAB PO PRN ×3 (02:32→19:39)
[2021-05-14 05:51] LABS: BASOPHILS % (AUTO) 0 % (0-10); EOSINOPHILS # (AUTO) 0.1 10^3/uL (0.0-0.3); EOSINOPHILS % (AUTO) 1 % (0-10); HEMATOCRIT 38 % (35-52); HEMOGLOBIN 12.7 g/dL (11.5-16.0); LYMPHOCYTES % (AUTO) 14 % (12-44); MEAN CORPUSCULAR HEMOGLOBIN 33 pg (25-34); MEAN CORPUSCULAR HGB CONC 34 g/dL (32-36); MEAN CORPUSCULAR VOLUME 97 fL (80-99); MEAN PLATELET VOLUME 10.4 fL (9.0-12.2); MONOCYTES # (AUTO) 1.3 10^3/uL (0.0-1.0); MONOCYTES % (AUTO) 9 % (0-12); NEUTROPHILS # (AUTO) 11.3 10^3/uL (1.8-7.8); NEUTROPHILS % (AUTO) 76 % (42-75); PLATELET COUNT 180 10^3/uL (130-400); WHITE BLOOD COUNT 14.9 10^3/uL (4.3-11.0)
[2021-05-14 05:59] VITALS: BP 89/47
[2021-05-14] MEDS: IBUPROFEN 600 MG (MOTRIN) TAB PO SCH ×3 (06:00→18:22)
[2021-05-14] MEDS ORDERED: PRENATAL VITAMIN 1 EA TAB PO SCH (07:00)
[2021-05-14 08:51] VITALS: BP 110/58
[2021-05-14] MEDS: DOCUSATE SODIUM 100 MG (COLACE) CAP PO SCH (08:54)
[2021-05-14] MEDS ORDERED: FERROUS SULF 325 MG (IRON) TAB PO SCH (09:00)
--- NOTE | 2021-05-14 10:40 | Postpartum Progress Note ---
Note Note Day # 1 Subjective: Patient is without complaints. Ambulating, voiding. Tolerating a regular diet without nausea or vomiting. Normal lochia. Pain is well controlled with oral pain medications. Objective: Physical Exam: General - Alert and oriented, no apparent distress Abdomen - Soft, appropriately tender to palpation, non-distended, fundus firm at umbilicus Extremities - no edema, negative Jeff's bilaterally Assessment: Post- day # 1, status post vaginal delivery. Recovering well, hemodynamically stable Acute blood loss anemia Plan: Routine care. Encourage breast feeding. Encourage ambulation. Ferrous sulfate supplementation. Plan for discharge this evening or tomorrow morning, pending baby's DC from nursery Vitals - Labs Vital Signs - I&O Vital Signs Date Time Temp Pulse Resp B/P (MAP) Pulse Ox O2 Delivery O2 Flow Rate FiO2 05/14/21 08:51 36.3 72 16 110/58 (75) 97 Room Air 05/14/21 05:59 36.6 53 18 89/47 (61) 98 Room Air 05/13/21 23:04 36.8 73 18 112/52 (72) 96 Room Air 05/13/21 20:17 75 18 117/55 (75) Room Air 05/13/21 19:45 37.0 76 18 115/61 (79) Room Air 05/13/21 19:30 36.7 76 18 114/56 (75) Room Air 05/13/21 19:18 82 18 103/58 (73) Room Air 05/13/21 19:03 78 18 114/59 (77) Room Air 05/13/21 18:47 36.7 83 18 114/58 (76) Room Air 05/13/21 18:32 36.4 81 18 117/59 (78) Room Air 05/13/21 18:18 84 18 117/56 (76) Room Air 05/13/21 18:03 92 18 125/57 (79) Non Rebreather 15.00 05/13/21 18:00 83 18 119/57 (77) Room Air 05/13/21 17:45 82 18 113/57 (75) Room Air 05/13/21 17:30 37.3 76 18 102/63 (76) Room Air 05/13/21 17:15 73 18 130/71 (90) Room Air 05/13/21 17:00 70 18 121/57 (78) Room Air 05/13/21 16:45 37.2 83 18 128/60 (82) Room Air 05/13/21 16:30 37.2 74 18 109/53 (71) Room Air 05/13/21 16:15 81 18 131/63 (85) Room Air 05/13/21 16:00 37.1 18 Room Air 05/13/21 15:45 80 18 99/54 (69) Room Air 05/13/21 15:30 78 18 99/51 (67) Room Air 05/13/21 15:15 78 18 95/52 (66) Room Air 05/13/21 15:00 37.4 81 18 109/59 (76) Room Air 05/13/21 14:45 92 18 94/51 (65) Room Air 05/13/21 14:30 86 18 109/56 (73) Room Air 05/13/21 14:15 37.4 82 18 108/56 (73) Room Air 05/13/21 14:00 84 18 117/57 (77) Room Air 05/13/21 13:45 82 18 111/56 (74) Room Air 05/13/21 13:30 90 18 103/55 (71) Room Air 05/13/21 13:15 37.5 89 18 101/55 (70) Room Air 05/13/21 13:00 83 18 108/56 (73) Room Air 05/13/21 12:45 85 18 106/55 (72) Room Air 05/13/21 11:00 36.9 115 18 121/64 (83) 96 Room Air 05/13/21 10:46 36.9 115 18 96 Room Air 05/13/21 10:46 Room Air I & O 05/14/21 07:00 Intake Total 1750 ml Balance 1750 ml Labs Laboratory Tests 05/13/21 11:15: White Blood Count 12.4H, Red Blood Count 3.87, Hemoglobin 12.6, Hematocrit 37, Mean Corpuscular Volume 97, Mean Corpuscular Hemoglobin 33, Mean Corpuscular Hemoglobin Concent 34, Red Cell Distribution Width 13.6, Platelet Count 206, Mean Platelet Volume 10.5, Immature Granulocyte % (Auto) 2, Neutrophils (%) (Auto) 77H, Lymphocytes (%) (Auto) 14, Monocytes (%) (Auto) 8, Eosinophils (%) (Auto) 0, Basophils (%) (Auto) 0, Neutrophils # (Auto) 9.5H, Lymphocytes # (Auto) 1.7, Monocytes # (Auto) 0.9, Eosinophils # (Auto) 0.0, Basophils # (Auto) 0.0, Immature Granulocyte # (Auto) 0.2H 05/13/21 11:30: Urine Color YELLOW, Urine Clarity CLEAR, Urine pH 7.0, Urine Specific [place] 1.010L, Urine Protein NEGATIVE, Urine Glucose (UA) NEGATIVE, Urine Ketones NEGATIVE, Urine Nitrite NEGATIVE, Urine Bilirubin NEGATIVE, Urine Urobilinogen 0.2, Urine Leukocyte Esterase 3+H, Urine RBC (Auto) NEGATIVE, Urine RBC RARE, Urine WBC 10-25H, Urine Squamous Epithelial Cells 5-10, Urine Crystals NONE, Urine Bacteria FEWH, Urine Casts NONE, Urine Mucus NEGATIVE, Urine Culture Indicated YES 05/14/21 05:31: White Blood Count 14.9H, Red Blood Count 3.90, Hemoglobin 12.7, Hematocrit 38, Mean Corpuscular Volume 97, Mean Corpuscular Hemoglobin 33, Mean Corpuscular Hemoglobin Concent 34, Red Cell Distribution Width 13.5, Platelet Count 180, Mean Platelet Volume 10.4, Immature Granulocyte % (Auto) 1, Neutrophils (%) (Auto) 76H, Lymphocytes (%) (Auto) 14, Monocytes (%) (Auto) 9, Eosinophils (%) (Auto) 1, Basophils (%) (Auto) 0, Neutrophils # (Auto) 11.3H, Lymphocytes # (Auto) 2.0, Monocytes # (Auto) 1.3H, Eosinophils # (Auto) 0.1, Basophils # (Auto) 0.0, Immature Granulocyte # (Auto) 0.2H FLACO MCCARTNEY APRN May 14, 2021 10:40
[2021-05-14 12:34] VITALS: BP 111/55
[2021-05-14 15:58] VITALS: BP 105/52
[2021-05-14 19:36] VITALS: BP 110/51
== END 2021-05-14 20:10 | disposition home or self-care (01) | DRG 806 ==
LOC: LDRP 11:05
PROVIDERS: ADMIT Obstetrics & Gynecology; ATTEND Obstetrics & Gynecology
PROC: 10D07Z6 Extraction of Products of Conception, Vacuum, Via Natural or Artificial Opening (ICD-10-PCS; principal; 2021-05-13)
PROC: 10907ZC Drainage of Amniotic Fluid, Therapeutic from Products of Conception, Via Natural or Artificial Opening (ICD-10-PCS; 2021-05-13)
PROC: 3E033VJ Introduction of Other Hormone into Peripheral Vein, Percutaneous Approach (ICD-10-PCS; 2021-05-13)
DX: O76 Abnormality in fetal heart rate and rhythm complicating labor and delivery (principal); D62 Acute posthemorrhagic anemia; Z37.0 Single live birth; O69.81X0 Labor and delivery complicated by cord around neck, without compression, not applicable or unspecified; Z3A.39 39 weeks gestation of pregnancy; O90.81 Anemia of the puerperium
CPT/HCPCS: 36415; 81000; 85025; 86850; 86900; 86901; 87088

== ENCOUNTER 2021-05-20 02:11 | Day surgery (SDC) | payer MEDICAID ==
[2021-05-20] VITALS (24 sets, daily range): BP systolic 95–120; BP diastolic 45–60
[~2021-05-20] VITALS: Ht 170.1 cm; Wt 65.0 kg
[~2021-05-20 02:11] MED LIST changes: +ACHD5005 PO; +BENZ78AE5 TP; +DOCU100C37 PO
[2021-05-20 02:31] LABS: BASOPHILS % (AUTO) 0 % (0-10); EOSINOPHILS # (AUTO) 0.1 10^3/uL (0.0-0.3); EOSINOPHILS % (AUTO) 1 % (0-10); HEMATOCRIT 37 % (35-52); HEMOGLOBIN 12.4 g/dL (11.5-16.0); LYMPHOCYTES # (AUTO) 2.1 10^3/uL (1.0-4.0); LYMPHOCYTES % (AUTO) 25 % (12-44); MEAN CORPUSCULAR HEMOGLOBIN 32 pg (25-34); MEAN CORPUSCULAR HGB CONC 33 g/dL (32-36); MEAN CORPUSCULAR VOLUME 96 fL (80-99); MEAN PLATELET VOLUME 9.7 fL (9.0-12.2); MONOCYTES # (AUTO) 0.6 10^3/uL (0.0-1.0); MONOCYTES % (AUTO) 7 % (0-12); NEUTROPHILS # (AUTO) 5.6 10^3/uL (1.8-7.8); NEUTROPHILS % (AUTO) 65 % (42-75); PLATELET COUNT 218 10^3/uL (130-400); WHITE BLOOD COUNT 8.5 10^3/uL (4.3-11.0)
[2021-05-20 02:42] LABS: POTASSIUM 3.5 MMOL/L (3.6-5.0)
[2021-05-20 02:43] LABS: CALCIUM 8.7 MG/DL (8.5-10.1)
[2021-05-20 02:44] LABS: PROTHROMBIN TIME PATIENT 13.9 SEC (12.2-14.7)
[2021-05-20] MEDS ORDERED: METHYLERGONOVINE 0.2 MG (MEHTERGINE) TAB PO ONE (02:45)
[2021-05-20 02:47] LABS: CREATININE SERUM 0.61 MG/DL (0.60-1.30)
--- NOTE | 2021-05-20 03:16 | ED GU-Female ---
General Chief Complaint: (<6 weeks) Stated Complaint: HEMORRHAGE Nursing Triage Note: Pt arrival to ER via [facility] with complaint of Post Hemmorhage. Pt is 6 days post after vaginal delivery of 5.26 kg baby. Pt states that she has had some minor bleeding since , but states that tonight about midnight she felt a large gush and had lots of blood from vagina. Pt denies pain. Pt tried driving self to ER, but had to machine puller and laster after second big gush with lots of blood. Pt arrives with pants and under garments saturated in blood. EMS placed two large 5x9 pads in vaginal area, and both are saturated with blood. Pt vitals are stable upon arrival. Pt has 18 gauge IV in left AC upon arrival. 100 cc of NS RADIO PROGRAM DIRECTOR by EMS. Source: patient, old records Exam Limitations: no limitations History of Present Illness Date Seen by Provider: May 20, 2021 Time Seen by Provider: 02:13 Initial Comments This 35-year-old woman presents to the emergency room with heavy vaginal bleeding after a vaginal delivery on May 13. Bleeding started around midnight and was rather heavy. She denies pain, fever, or chills. It was noted at the time of delivery that completeness of placenta could not be determined. This was noted on the pathology report as well. On examination she probably has at least 400 mL of blood in clots in her close and soaked into her close. Vital signs are normal. Patient describes some mild lightheadedness but otherwise has no associated symptoms. She does not have any known bleeding disorders and is not on any blood thinning medications. Allergies and Home Medications Allergies Coded Allergies: Penicillins (Verified Allergy, Severe, rash, 05/27/19) Patient Home Medication List Home Medication List Reviewed: Yes Benzocaine/Menthol (Dermoplast Pain Relieving [place]) 78 Gm Aerosol, 0 EA TP UD PRN for PAIN- SEE INSTRUCTIONS Prescribed by: SHUBHAM SANCHEZ on 05/13/212124 Last Action: Reviewed Docusate Sodium (Docusate Sodium) 100 Mg Capsule, 100 MG PO BID PRN for CONSTIPATION-1ST LINE Prescribed by: SHUBHAM SANCHEZ on 05/13/212124 Last Action: Reviewed Hydrocodone Bit/Acetaminophen (HYDROcodone/APAP 5 MG/325 MG TAB) 1 Tab Tab, 1-2 EA PO Q6H PRN for PAIN-MODERATE (5-7) Prescribed by: SHUBHAM SANCHEZ on 05/13/212125 Last Action: Reviewed Ibuprofen (Ibu) 600 Mg Tablet, 600 MG PO Q6H Prescribed by: SHUBHAM SANCHEZ on 05/13/212124 Last Action: Reviewed Vit W-Ca,Fe,FA(<1 mg) ( Vitamins) 1 Each Tablet, 1 EACH PO DAILY, (Reported) Entered as Reported by: JANET PUENTE on 04/30/21 120 Last Action: Reviewed Discontinued Medications Ferrous Sulfate (Ferrous Sulfate) 325 Mg Tablet, 325 MG PO DAILY Discontinued Reason: No Longer Taking Prescribed by: LEROY SANDOVAL on 05/13/21 112 Last Action: Discontinued Review of Systems Review of Systems Constitutional: no symptoms reported EENTM: no symptoms reported Respiratory: no symptoms reported Cardiovascular: see HPI Gastrointestinal: no symptoms reported Genitourinary: see HPI : No Musculoskeletal: no symptoms reported Skin: no symptoms reported Psychiatric/Neurological: No Symptoms Reported Endocrine: No Symptoms Reported Hematologic/Lymphatic: No Symptoms Reported Past Kahmpkd-Wykgus-Avybrk Hx Patient Social History Tobacco Use?: No Use of E-Cig and/or Vaping dev: No Substance use?: No Alcohol Use?: No Pt feels they are or have been: No Immunizations Up To Date Influenza Vaccine Up-to-Date: No; Not Current Seasonal Allergies Seasonal Allergies: No Past Medical History Surgeries: Yes Respiratory: No Cardiac: No Neurological: No : No Genitourinary: No Gastrointestinal: No Musculoskeletal: No Endocrine: No HEENT: No Cancer: No Psychosocial: No Integumentary: No Blood Disorders: No Adverse Reaction/Blood Tranf: No Family Medical History Patient reports no known family medical history. Physical Exam Vital Signs Vital Signs - First Documented 05/20/21 02:32 Temp 37.0 Pulse 60 Resp 18 B/P (MAP) 114/80 (91) Pulse Ox 98 O2 Delivery Room Air Capillary Refill : Less Than 3 Seconds Height, Weight, BMI Height: '" Weight: lbs. oz. kg; 22.00 BMI Method: General Appearance: WD/WN, no apparent distress HEENT: normal ENT inspection Cardiovascular: regular rate, rhythm, no edema, no murmur Respiratory: lungs clear, normal breath sounds, no respiratory distress Gastrointestinal: normal bowel sounds, non tender, soft Pelvic: vaginal bleeding, other (Notable active bleeding of bright red blood from the vagina. Also passage of large clots noted.) Extremities: normal inspection, no pedal edema Neurologic/Psychiatric: alert, normal mood/affect, oriented x 3 Skin: normal color, warm/dry Progress/Results/Core Measures Suspected Sepsis SIRS Temperature: Pulse: 60 Respiratory Rate: 18 Laboratory Tests 05/20/21 02:25: White Blood Count 8.5 Blood Pressure 122 /81 Mean: 95 Laboratory Tests 05/20/21 02:25: Creatinine 0.61, INR Comment 1.0, Platelet Count 218 Results/Orders Lab Results Laboratory Tests Test 05/20/21 02:25 Range/Units White Blood Count 8.5 4.3-11.0 10^3/uL Red Blood Count 3.86 3.80-5.11 10^6/uL Hemoglobin 12.4 11.5-16.0 g/dL Hematocrit 37 35-52 % Mean Corpuscular Volume 96 80-99 fL Mean Corpuscular Hemoglobin 32 25-34 pg Mean Corpuscular Hemoglobin Concent 33 32-36 g/dL Red Cell Distribution Width 12.7 10.0-14.5 % Platelet Count 218 130-400 10^3/uL Mean Platelet Volume 9.7 9.0-12.2 fL Immature Granulocyte % (Auto) 1 % Neutrophils (%) (Auto) 65 42-75 % Lymphocytes (%) (Auto) 25 12-44 % Monocytes (%) (Auto) 7 0-12 % Eosinophils (%) (Auto) 1 0-10 % Basophils (%) (Auto) 0 0-10 % Neutrophils # (Auto) 5.6 1.8-7.8 10^3/uL Lymphocytes # (Auto) 2.1 1.0-4.0 10^3/uL Monocytes # (Auto) 0.6 0.0-1.0 10^3/uL Eosinophils # (Auto) 0.1 0.0-0.3 10^3/uL Basophils # (Auto) 0.0 0.0-0.1 10^3/uL Immature Granulocyte # (Auto) 0.1 0.0-0.1 10^3/uL Prothrombin Time 13.9 12.2-14.7 SEC INR Comment 1.0 0.8-1.4 Activated Partial Thromboplast Time 28 24-35 SEC Sodium Level 143 135-145 MMOL/L Potassium Level 3.5 L 3.6-5.0 MMOL/L Chloride Level 111 H 98-107 MMOL/L Carbon Dioxide Level 22 21-32 MMOL/L Anion Gap 10 5-14 MMOL/L Blood Urea Nitrogen 13 7-18 MG/DL Creatinine 0.61 0.60-1.30 MG/DL Estimat Glomerular Filtration Rate 113 BUN/Creatinine Ratio 21 Glucose Level 96 70-105 MG/DL Calcium Level 8.7 8.5-10.1 MG/DL My Orders Orders - ANAT ARIAS MD Basic Metabolic Panel (05/20/21 02:26) Cbc With Automated Diff (05/20/21 02:26) Protime With Inr (05/20/21:) Partial Thromboplastin Time (05/20/21 02:26) Ed Iv/Invasive Line Start (05/20/21 02:26) Red Cells Leukocytes Reduced (05/20/21 02:26) Type And Screen (05/20/21 02:26) Methylergonovine Tablet (Methergine Tabl (05/20/21 02:45) Vital Signs/I&O 05/20/21 05/20/21 05/20/21 05/20/21 02:32 03:11 04:00 05:29 Temp 37.0 36.7 36.4 Pulse 60 60 72 82 Resp 18 18 18 18 B/P (MAP) 114/80 (91) 122/81 112/59 (76) 95/51 (66) Pulse Ox 98 99 99 98 O2 Delivery Room Air Room Air Room Air Room Air Capillary Refill : Less Than 3 Seconds Blood Pressure Mean: 95 Progress Note : Progress Note Case was discussed with Dr. Zazueta who is on-call for Dr. SANCHEZ. He advised administering a dose of oral Methergine and admitting to women's services for close monitoring. If heavy bleeding persists, she will likely need D&C. Plan was communicated to the patient. During the course of her ER care she received fundal massage and was also allowed to breast-feed her baby to try to encourage uterine cramping. 2 units of PRBC were crossmatched to hold as a precaution due to the rapid heavy bleeding. Departure Communication (Admissions) Time/Spoke to Admitting Phy: 02:30 Dr. Zazueta Impression Primary Impression: hemorrhage Qualified Codes: O72.1 - Other immediate hemorrhage Disposition: ADMITTED INPATIENT Condition: Stable Admissions Decision to Admit Reason: Admit from ER (General) Decision to Admit/Date: May 20, 2021 Time/Decision to Admit Time: 02:30 Departure-Patient Inst. Referrals: RANI LONG MD (PCP/Family) Primary Care Physician ANAT ARIAS MD May 20, 2021 03:15
[2021-05-20] MEDS ORDERED: D5 LR IV SOLUTION 1,000 ML IV ONE (03:24)
[2021-05-20] MEDS ORDERED: D5 LR IV SOLUTION 1,000 ML IV SCH ×2 (04:15→08:45)
[2021-05-20] MEDS ORDERED: ONDANSETRON 4 MG/2 ML (SDV) Z0FRAN IVP PRN ×3 (04:15→08:45)
[2021-05-20] MEDS ORDERED: fentaNYL INJ 100 MCG/2 ML AMP IVP PRN (04:15)
[2021-05-20] MEDS ORDERED: METHYLERGONOVINE 0.2 MG/ML (METHERGINE) AMP ONE ×2 (04:45→07:25)
[2021-05-20] MEDS ORDERED: METHYLERGONOVINE 0.2 MG/ML (METHERGINE) AMP IM ONE ×2 (05:00→07:30)
[2021-05-20] MEDS ORDERED: LIDOCAINE PF 2% 5 ML (XYLOCAINE) VIAL ONE (07:31)
[2021-05-20] MEDS ORDERED: SEVOFLURANE (ULTANE) 15 ML INHAL SOLN ONE ×2 (07:31→08:40)
[2021-05-20] MEDS ORDERED: MIDAZOLAM 2 MG/2 ML (VERSED) VIAL ONE (07:31)
[2021-05-20] MEDS ORDERED: fentaNYL INJ 100 MCG/2 ML AMP ONE (07:31)
[2021-05-20] MEDS ORDERED: ROCURONIUM 10 MG/ML 5 ML SYRINGE IV ONE (07:31)
[2021-05-20] MEDS ORDERED: ONDANSETRON 4 MG/2 ML (SDV) Z0FRAN ONE ×2 (07:31→08:56)
[2021-05-20] MEDS ORDERED: proPOfol 200 MG/20 ML (DIPRIVAN) VIAL IV ONE (07:31)
--- NOTE | 2021-05-20 07:35 | History & Physical-Surgical ---
HPO-Surgical History of Present Illness Chief Complaint: Pt arrival to ER via [facility] with complaint of Post Hemmorhage. Pt is 6 days post after vaginal delivery of 5.26 kg baby. Pt states that she has had some minor bleeding since , but states that tonight about midnight she felt a large gush and had lots of blood from vagina. Pt denies pain. Pt tried driving self to ER, but had to truss puller helper after second big gush with lots of blood. Pt arrives with pants and under garments saturated in blood. EMS placed two large 5x9 pads in vaginal area, and both are saturated with blood. Pt vitals are stable upon arrival. Pt has 18 gauge IV in left AC upon arrival. 100 cc of NS CERTIFIED MEDICAL CODER by EMS. Diagnosis/Surgical Indication: Late PP Hemorrhage Procedure: D and C Date of Surgery: May 20, 2021 Allergies and Home Medications Allergies Coded Allergies: Penicillins (Verified Allergy, Severe, rash, 05/27/19) Patient Home Medication List Home Medication List Reviewed: Yes Benzocaine/Menthol (Dermoplast Pain Relieving [place]) 78 Gm Aerosol, 0 EA TP UD PRN for PAIN- SEE INSTRUCTIONS Prescribed by: SHUBHAM SANCHEZ on 05/13/212124 Last Action: Reviewed Docusate Sodium (Docusate Sodium) 100 Mg Capsule, 100 MG PO BID PRN for CONSTIPATION-1ST LINE Prescribed by: SHUBHAM SANCHEZ on 05/13/212124 Last Action: Reviewed Hydrocodone Bit/Acetaminophen (HYDROcodone/APAP 5 MG/325 MG TAB) 1 Tab Tab, 1-2 EA PO Q6H PRN for PAIN-MODERATE (5-7) Prescribed by: SHUBHAM SANCHEZ on 05/13/212125 Last Action: Reviewed Ibuprofen (Ibu) 600 Mg Tablet, 600 MG PO Q6H Prescribed by: SHUBHAM SANCHEZ on 05/13/212124 Last Action: Reviewed Vit W-Ca,Fe,FA(<1 mg) ( Vitamins) 1 Each Tablet, 1 EACH PO DAILY, (Reported) Entered as Reported by: JANET PUENTE on 04/30/21 1203 Last Action: Reviewed Discontinued Medications Ferrous Sulfate (Ferrous Sulfate) 325 Mg Tablet, 325 MG PO DAILY Discontinued Reason: No Longer Taking Prescribed by: LEROY SANDOVAL on 05/13/21 1123 Last Action: Discontinued Past Lkrqfxl-Shdgcn-Oufrvo Hx Patient Social History Marrital Status: Smoking Status: Never a Smoker 2nd Hand Smoke Exposure: No Recent Hopitalizations: No Have you traveled recently?: No Alcohol Use?: No Pt feels they are or have been: No Immunizations Up To Date Date of Influenza Vaccine: May 23, 2019 Seasonal Allergies Seasonal Allergies: No Surgeries Yes Respiratory No Cardiovascular No Neurological No Reproductive System : No Genitourinary No Gastrointestinal No Musculoskeletal No Endocrine History of Endocrine Disorders: No HEENT History of HEENT Disorders: No Cancer No Psychosocial History of Psychiatric Problem: No Integumentary History of Skin or Integumenta: No Blood Transfusions History of Blood Disorders: No Adverse Reaction to a Blood Tr: No Family Medical History Family Hx: Patient reports no known family medical history. Exam Vital Signs Vital Signs 05/20/21 06:35 Temp 36.4 Pulse 88 Resp 18 B/P (MAP) 95/47 (63) Pulse Ox 98 O2 Delivery Room Air Capillary Refill : Less Than 3 Seconds Labs Laboratory Tests Test 05/20/21 02:25 Range/Units White Blood Count 8.5 4.3-11.0 10^3/uL Red Blood Count 3.86 3.80-5.11 10^6/uL Hemoglobin 12.4 11.5-16.0 g/dL Hematocrit 37 35-52 % Mean Corpuscular Volume 96 80-99 fL Mean Corpuscular Hemoglobin 32 25-34 pg Mean Corpuscular Hemoglobin Concent 33 32-36 g/dL Red Cell Distribution Width 12.7 10.0-14.5 % Platelet Count 218 130-400 10^3/uL Mean Platelet Volume 9.7 9.0-12.2 fL Immature Granulocyte % (Auto) 1 % Neutrophils (%) (Auto) 65 42-75 % Lymphocytes (%) (Auto) 25 12-44 % Monocytes (%) (Auto) 7 0-12 % Eosinophils (%) (Auto) 1 0-10 % Basophils (%) (Auto) 0 0-10 % Neutrophils # (Auto) 5.6 1.8-7.8 10^3/uL Lymphocytes # (Auto) 2.1 1.0-4.0 10^3/uL Monocytes # (Auto) 0.6 0.0-1.0 10^3/uL Eosinophils # (Auto) 0.1 0.0-0.3 10^3/uL Basophils # (Auto) 0.0 0.0-0.1 10^3/uL Immature Granulocyte # (Auto) 0.1 0.0-0.1 10^3/uL Prothrombin Time 13.9 12.2-14.7 SEC INR Comment 1.0 0.8-1.4 Activated Partial Thromboplast Time 28 24-35 SEC Sodium Level 143 135-145 MMOL/L Potassium Level 3.5 L 3.6-5.0 MMOL/L Chloride Level 111 H 98-107 MMOL/L Carbon Dioxide Level 22 21-32 MMOL/L Anion Gap 10 5-14 MMOL/L Blood Urea Nitrogen 13 7-18 MG/DL Creatinine 0.61 0.60-1.30 MG/DL Estimat Glomerular Filtration Rate 113 BUN/Creatinine Ratio 21 Glucose Level 96 70-105 MG/DL Calcium Level 8.7 8.5-10.1 MG/DL General Appearance: Alert, Oriented X3, Cooperative, Mild Distress HEENT: Atraumatic, PERRLA Respiratory: Clear to Auscultation Cardiovascular: Regular Rate (tachycardic) Abdominal: Normal Bowel Sounds Extremities: Other (pale palor) Psych/Mental Status: Mental Status NL Assessment/Plan Assessment and Plan Diagnosis: 35 yo with late PP hemorrhage Hypotensive Tachycardic P: Methergine has been given x 3 doses. 1 PO, 2 IM, no improvement in bleeding. Discussed with patient proceeding with D and C. Repeat CBC ordered but pending, vitals are worsening, bleeding continues to be heavy 2-300 q 30 min. Risk reviewed with patient, will take to [facility]. Admission Diagnosis hemorrhage Admission Status: Observation SHUBHAM SANCHEZ DO May 20, 2021 07:35
[2021-05-20] MEDS ORDERED: ETOMIDATE IV SOLN 20 MG/10 ML VIAL ONE (07:38)
--- NOTE | 2021-05-20 07:51 | Diagnostic Imaging Report ---
PROCEDURE: US PELVIC (NON OB) TECHNIQUE: Multiple real-time grayscale images were obtained over the pelvis in various projections transabdominally. INDICATION: bleeding COMPARISON: None. FINDINGS: Limited evaluation of the uterus demonstrates irregular endo/myometrium. There are some slightly increased blood flow centrally which could be retained products of conception. The adnexa are grossly unremarkable. The ovaries could not be identified. There is no free fluid. IMPRESSION: Questionable retained products of conception. Dictated by: Dictated on workstation # [id number]
[2021-05-20] MEDS ORDERED: PHENYLEPHRINE 100 MCG/ML 10 ML (ANESTHESIA) SYR ONE (07:56)
[2021-05-20] MEDS ORDERED: OXYTOCIN (PITOCIN) 10 UNIT/ML VIAL ONE (08:02)
[2021-05-20] MEDS ORDERED: CARBOPROST (HEMABATE) 250 MCG/ML AMP IM ONE (08:03)
[2021-05-20 08:06] LABS: BASOPHILS % (AUTO) 0 % (0-10); EOSINOPHILS % (AUTO) 0 % (0-10); HEMATOCRIT 27 % (35-52); HEMOGLOBIN 9.1 g/dL (11.5-16.0); LYMPHOCYTES # (AUTO) 1.6 10^3/uL (1.0-4.0); LYMPHOCYTES % (AUTO) 12 % (12-44); MEAN CORPUSCULAR HEMOGLOBIN 32 pg (25-34); MEAN CORPUSCULAR HGB CONC 34 g/dL (32-36); MEAN CORPUSCULAR VOLUME 95 fL (80-99); MEAN PLATELET VOLUME 10.1 fL (9.0-12.2); MONOCYTES # (AUTO) 0.4 10^3/uL (0.0-1.0); MONOCYTES % (AUTO) 3 % (0-12); NEUTROPHILS # (AUTO) 11.1 10^3/uL (1.8-7.8); NEUTROPHILS % (AUTO) 84 % (42-75); PLATELET COUNT 260 10^3/uL (130-400); WHITE BLOOD COUNT 13.2 10^3/uL (4.3-11.0)
[2021-05-20] MEDS ORDERED: ALBUMIN 25% 25 GM/100 ML 50 ML IV ONE (08:15)
[2021-05-20] MEDS ORDERED: OXYTOCIN PRE-MIX DRIP 500 ML IV ONE (08:35)
[2021-05-20] MEDS ORDERED: HYDROmorphone 2 MG/ML VIAL (DILAUDID) IV ONE (08:45)
[2021-05-20] MEDS ORDERED: HYDROmorphone 2 MG/ML VIAL (DILAUDID) ONE (08:51)
[2021-05-20 14:01] LABS: MEAN CORPUSCULAR HEMOGLOBIN 33 pg (25-34); MEAN CORPUSCULAR HGB CONC 33 g/dL (32-36); MEAN CORPUSCULAR VOLUME 99 fL (80-99); MEAN PLATELET VOLUME 10.8 fL (9.0-12.2); PLATELET COUNT 131 10^3/uL (130-400)
[2021-05-20 14:09] LABS: HEMATOCRIT 20 % (35-52); HEMOGLOBIN 6.5 g/dL (11.5-16.0)
[2021-05-20] MEDS ORDERED: NS (IVPB) 250 ML ONE (14:31)
--- NOTE | 2021-05-20 14:45 | OPERATIVE REPORT ---
DATE OF SERVICE: PREOPERATIVE DIAGNOSIS: A 35-year-old female with late hemorrhage. POSTOPERATIVE DIAGNOSIS: A 35-year-old female with late hemorrhage. PROCEDURE: D and C. SURGEON: Antonio Sanchez DO ANESTHESIA: LMA general. ESTIMATED BLOOD LOSS: 400 mL. URINE OUTPUT: 300 mL clear straight drain during the procedure. FLUIDS: 1500 mL lactated Ringer's solution. FINDINGS: A large bulky uterus with a moderate amount of endometrial tissue and curettings and suspected products of conception were removed from the uterus. SPECIMEN SENT: Products of conception. INDICATIONS FOR PROCEDURE: This 35-year-old female is a patient who had a vacuum-assisted vaginal delivery approximately 1 week ago. She had a large weighing over 11 pounds. Her course was fairly routine. She did receive one dose of Methergine immediately . Control of bleeding seemed to be significantly well controlled. There were no concerns with retained placenta as it delivered spontaneously within the normal time frame. The patient's course was unremarkable. After that, she was sent home on day #1; however, last night at approximately 12:00, she began to have heavy hemorrhaging and bleeding. She presented to [facility] Emergency Department where bleeding was noted to be significantly heavy and sent upstairs. She was initially admitted by my partner, Dr. Zazueta who had them give her Methergine. She received one dose of oral in the Emergency Department and then 2 doses IM up on the floor. Throughout the morning, she continued to produce approximately 200 to 300 mL per hour of blood on her kendrick-pad. She was becoming hypertensive this morning and slightly tachycardic. Due to concerns of acute blood loss anemia as well as hemorrhage, it was discussed with the patient proceeding with Ariane and Stefanie. Risks of the procedure were discussed with the patient in her room prior to taking her down to the procedure. After all of her questions were answered, consent was obtained, the patient was taken to the operating room. OPERATIVE REPORT IN DETAIL: Once in the operating room, anesthesia was found to be adequate. She was placed in dorsal lithotomy position and prepped and draped in normal sterile fashion. Timeout was performed. I then placed a weighted speculum into the patient's vagina. Right angle retractor was used to visualize the cervix, which was grasped at 12 o'clock position using a long Allis clamp. I then gently sounded the uterine cavity, depth was found to be 15 cm. I used a Banjo curette to clear all of the endometrial tissue collection including blood clots and endometrial tissue. This was done on several different passes. Large to moderate amount of tissue and blood clots were removed and collected in a specimen container. There is an area of bleeding along the right margin of the cervix and 2-0 Vicryl sutures placed in a [id number] fashion to control that bleeding as well, after which bleeding seems to have subsided significantly. Intraoperatively, I had anesthesia administer 250 mcg of carboprost and 30 units of Pitocin through the IV and told to continue the IV Pitocin afterwards. The bleeding was significantly controlled at that point. There was still a small to moderate amount of bleeding noted; however, due to stability, I decided to complete the procedure and removed all the instruments from the patient's vagina. The patient tolerated the procedure well and was taken to recovery area in stable condition. Lap and sponge counts were correct at the end of the procedure. Instrument counts correct as well. Job ID: [id number] DocumentID: [id number] Dictated Date: 05/20/2021 08:44:50 Water And Fire Technician Date: 05/20/2021 14:44:12 Dictated By: ANTONIO SANCHEZ DO
[2021-05-20 17:50] LABS: HEMOGLOBIN 7.3 g/dL (11.5-16.0)
[2021-05-20] MEDS: ACETAMINOPHEN 500 MG TAB (TYLENOL) PO PRN (18:42)
[2021-05-20] MEDS ORDERED: CHLORASEPTIC LOZENGE MM PRN (21:15)
[2021-05-20] MEDS ORDERED: CHLORASEPTIC LOZENGE MM ONE (21:17)
[2021-05-21] MEDS ORDERED: IBUPROFEN 600 MG (MOTRIN) TAB PO ONE (00:17)
[2021-05-21 00:18] VITALS: BP 106/52
[2021-05-21] MEDS: IBUPROFEN 600 MG (MOTRIN) TAB PO PRN ×2 (00:18→09:16)
[2021-05-21] MEDS: ACETAMINOPHEN 500 MG TAB (TYLENOL) PO PRN ×2 (00:18→09:16)
[2021-05-21 05:41] LABS: BASOPHILS % (AUTO) 0 % (0-10); EOSINOPHILS # (AUTO) 0.1 10^3/uL (0.0-0.3); EOSINOPHILS % (AUTO) 1 % (0-10); HEMATOCRIT 21 % (35-52); LYMPHOCYTES # (AUTO) 2.8 10^3/uL (1.0-4.0); LYMPHOCYTES % (AUTO) 34 % (12-44); MEAN CORPUSCULAR HEMOGLOBIN 33 pg (25-34); MEAN CORPUSCULAR HGB CONC 34 g/dL (32-36); MEAN CORPUSCULAR VOLUME 95 fL (80-99); MEAN PLATELET VOLUME 9.7 fL (9.0-12.2); MONOCYTES # (AUTO) 0.6 10^3/uL (0.0-1.0); MONOCYTES % (AUTO) 7 % (0-12); NEUTROPHILS # (AUTO) 4.6 10^3/uL (1.8-7.8); NEUTROPHILS % (AUTO) 57 % (42-75); PLATELET COUNT 159 10^3/uL (130-400); WHITE BLOOD COUNT 8.2 10^3/uL (4.3-11.0)
--- NOTE | 2021-05-21 08:18 | Progress Note ---
Standard Progress Note Progress Notes/Assess & Plan Date Seen by a Provider: May 21, 2021 Time Seen by a Provider: 08:15 Progress/Assessment & Plan Patient doing well this morning, still somewhat weak after 2 u PRBC, but overall says she feels better. Bleeding is substantially less. Vital Sign - Last 24 Hours 05/20/21 05/20/21 05/20/21 05/20/21 08:30 08:30 08:40 08:45 Temp 36.7 Resp 20 16 B/P (MAP) 119/45 (69) 108/49 (68) Pulse Ox 100 100 O2 Delivery OxyMask OxyMask OxyMask OxyMask O2 Flow Rate 6 6 4 4 05/20/21 05/20/21 05/20/21 05/20/21 08:50 09:00 09:00 09:10 Resp 14 16 16 B/P (MAP) 106/46 (66) 107/60 (76) 102/48 (66) Pulse Ox 99 96 97 O2 Delivery OxyMask Room Air Room Air Room Air O2 Flow Rate 2 05/20/21 05/20/21 05/20/21 05/20/21 09:15 09:20 09:20 09:30 Temp 36.5 36.6 Pulse 96 Resp 18 18 B/P (MAP) 106/46 (66) 107/53 (71) Pulse Ox 96 97 O2 Delivery Room Air Room Air Room Air Room Air 05/20/21 05/20/21 05/20/21 05/20/21 10:33 11:30 15:00 15:06 Temp 36.8 36.6 37.1 37.0 Pulse 93 89 115 108 Resp 18 18 18 18 B/P (MAP) 109/53 (71) 104/52 (69) 114/56 107/54 Pulse Ox 97 98 99 98 O2 Delivery Room Air Room Air Room Air Room Air 05/20/21 05/20/21 05/20/21 05/20/21 15:15 15:30 16:00 17:00 Temp 36.8 36.9 Pulse 106 107 111 98 Resp 18 18 18 18 B/P (MAP) 114/52 101/53 (69) 120/58 113/56 Pulse Ox 98 98 98 98 O2 Delivery Room Air Room Air Room Air Room Air 05/20/21 05/20/21 05/20/2105/20/21 17:10 18:28 19:02 19:11 Temp 36.9 37.1 36.8 Pulse 99 85 79 82 Resp 18 18 18 B/P (MAP) 105/55 107/53 107/53 103/50 Pulse Ox 99 99 99 O2 Delivery Room Air Room Air Room Air Room Air 05/20/21 05/20/21 05/20/21 05/20/21 20:00 20:00 21:00 21:00 Temp 36.7 36.7 36.5 36.5 Pulse 80 80 81 81 Resp 18 18 18 18 B/P (MAP) 102/53 102/53 (69) 100/54 (69) 100/54 Pulse Ox 99 98 98 98 O2 Delivery Room Air Room Air Room Air Room Air 05/21/21 00:18 Temp 37.0 Pulse 66 Resp 18 B/P (MAP) 106/52 (70) Pulse Ox 98 O2 Delivery Room Air Intake and Output 05/20/21 05/20/21 05/21/21 15:00 23:00 07:00 Intake Total 1100 ml 300 ml 800 ml Output Total 300 ml Balance 800 ml 300 ml 800 ml Laboratory Tests Test 05/20/21 13:25 05/20/21 17:34 05/21/21 05:05 Range/Units White Blood Count 13.0 H 8.2 4.3-11.0 10^3/uL Red Blood Count 1.98 L 2.15 L 3.80-5.11 10^6/uL Hemoglobin 6.5 #*L 7.3 L 7.0 L 11.5-16.0 g/dL Hematocrit 20 *L 22 L 21 L 35-52 % Mean Corpuscular Volume 99 95 80-99 fL Mean Corpuscular Hemoglobin 33 33 25-34 pg Mean Corpuscular Hemoglobin Concent 33 34 32-36 g/dL Red Cell Distribution Width 12.9 13.6 10.0-14.5 % Platelet Count 131 159 130-400 10^3/uL Mean Platelet Volume 10.8 9.7 9.0-12.2 fL Immature Granulocyte % (Auto) 1 % Neutrophils (%) (Auto) 57 42-75 % Lymphocytes (%) (Auto) 34 12-44 % Monocytes (%) (Auto) 7 0-12 % Eosinophils (%) (Auto) 1 0-10 % Basophils (%) (Auto) 0 0-10 % Neutrophils # (Auto) 4.6 1.8-7.8 10^3/uL Lymphocytes # (Auto) 2.8 1.0-4.0 10^3/uL Monocytes # (Auto) 0.6 0.0-1.0 10^3/uL Eosinophils # (Auto) 0.1 0.0-0.3 10^3/uL Basophils # (Auto) 0.0 0.0-0.1 10^3/uL Immature Granulocyte # (Auto) 0.1 0.0-0.1 10^3/uL Uterine fundus firm and below umbilicus Diagnosis: Late PP hemorrhage, s/p D and C Acute blood loss anemia, s/p 2uPRBC P: Iron 3x daily DC home later this morning. SHUBHAM SANCHEZ DO May 21, 2021 08:18
[2021-05-21] MEDS ORDERED: FERR325T24 PO (08:19)
[2021-05-21 08:40] VITALS: BP 106/55
[2021-05-21 11:28] VITALS: BP 103/53
[2021-05-21] MEDS ORDERED: FERROUS SULF 325 MG (IRON) TAB PO SCH (13:00)
--- NOTE | 2021-05-21 14:12 | Anesthesia-General Post-Op ---
General Patient Condition Mental Status/LOC: Same as Preop Cardiovascular: Satisfactory Nausea/Vomiting: Absent Respiratory: Satisfactory Pain: Controlled Complications: Absent Post Op Complications Complications None Follow Up Care/Instructions Patient Instructions None needed. Anesthesia/Patient Condition Patient Condition Patient is already discharged to home but she was doing well, no complaints, stable vital signs, no apparent adverse anesthesia problems prior to her discharge. ALEJANDRA FERRERA DO May 21, 2021 14:12
== END 2021-05-21 11:40 | disposition home or self-care (01) ==
LOC: EDUNIT# 02:11 → ER 02:13 → LDRP 02:37 → UNDOADMOB 02:37 → LDRP 02:37 → SDC 02:37 → UNDODISOB 05-21 11:40
PROVIDERS: ATTEND Obstetrics & Gynecology
DX: O72.2 Delayed and secondary postpartum hemorrhage (principal); I95.9 Hypotension, unspecified; J30.9 Allergic rhinitis, unspecified; R00.0 Tachycardia, unspecified; K21.9 Gastro-esophageal reflux disease without esophagitis; Z79.891 Long term (current) use of opiate analgesic; Z79.899 Other long term (current) drug therapy
CPT/HCPCS: 36415; 36430; 76856; 80048; 85014; 85018; 85025; 85027; 85610; 85730; 86850; 86900; 86901; 86920; 88305; 96361; 96372

== ENCOUNTER → 2021-12-02 | Outpatient (CLI) | payer MEDICAID ==
[~2021-12-02] MED LIST changes: +FERR325T24 PO
== END ==
LOC: LABNPT 15:35
PROVIDERS: ATTEND Family Medicine
DX: Z20.822 Contact with and (suspected) exposure to COVID-19 (principal)
CPT/HCPCS: 87636

== ENCOUNTER 2022-10-12 06:15 | Outpatient (CLI) | payer MEDICAID ==
[~2022-10-12] VITALS: Ht 170.2 cm; Wt 66.3 kg
[2022-10-13] MEDS ORDERED: IBUP-1773 PO (07:50)
== END 2022-10-12 10:34 | disposition home or self-care (01) ==
LOC: PREOP 06:15
PROVIDERS: ATTEND Obstetrics & Gynecology
DX: Z01.818 Encounter for other preprocedural examination (principal)

== ENCOUNTER 2022-10-13 05:21 | Emergency (ER) | payer BC, MEDICAID ==
--- NOTE | 2022-10-13 05:55 | ED General ---
General Stated Complaint: POSS MISCARRIAGE Source of Information: Patient Exam Limitations: No Limitations History of Present Illness Date Seen by Provider: Oct 13, 2022 Time Seen by Provider: 05:41 Initial Comments 36-year-old female presents to the emergency department today requesting an ultrasound. She is reportedly about 9 weeks and had a missed discovered by Dr. SANCHEZ in his office with via transvaginal ultrasound. He states he was quite sure but they are having a hard time accepting this and request a transvaginal ultrasound prior to their 730 DNC this morning. They state they just want to be sure that there is no viability. She denies any abdominal pain, vaginal bleeding. This is her fifth and she has 4 healthy children. No fevers or chills. All other systems reviewed and negative except documented per HPI. Voice recognition software was used to help create this chart Allergies and Home Medications Allergies Coded Allergies: Penicillins (Verified Allergy, Severe, rash, 10/12/22) Patient Home Medication List Home Medication List Reviewed: Yes No Active Prescriptions or Reported Meds Review of Systems Review of Systems Constitutional: no symptoms reported Past Fkqjcxy-[id number]-Slrwcn Hx Patient Social History Tobacco Use?: No Use of E-Cig and/or Vaping dev: No Substance use?: No Alcohol Use?: No Seasonal Allergies Seasonal Allergies: No Past Medical History Surgeries: Yes (D & C) Respiratory: No Cardiac: No Neurological: No Genitourinary: No Gastrointestinal: No Musculoskeletal: No Endocrine: No HEENT: No Cancer: No Psychosocial: No Integumentary: No Blood Disorders: No Adverse Reaction/Blood Tranf: No Family Medical History Reviewed Nursing Family Hx Patient reports no known family medical history. No Pertinent Family Hx Physical Exam Vital Signs Capillary Refill : Height, Weight, BMI Height: '" Weight: lbs. oz. kg; 22.88 BMI Method: General Appearance: No Apparent Distress, WD/WN Gastrointestinal: Normal Bowel Sounds, No Organomegaly, No Pulsatile Mass, Non Tender, Soft Progress/Results/Core Measures Suspected Sepsis SIRS Temperature: Pulse: Respiratory Rate: Blood Pressure / Mean: Results/Orders Vital Signs/I&O Capillary Refill : Departure Communication (Admissions) Patient is hemodynamically stable and asymptomatic. Unfortunately do not have u ltrasound available outside of business hours which will be after her planned procedure. I advised her to present to her planned procedure and see if Dr. SANCHEZ would do a transvaginal ultrasound prior to proceeding with a D&C. I think he would likely accommodate this given the patient's reluctance to go forward without proving nonviability. The patient and her state und erstanding. Independent history was obtained from the as well. Impression Primary Impression: Missed ab Disposition: HOME, SELF-CARE Condition: Stable Departure-Patient Inst. Referrals: RANI LONG MD (PCP/Family) Primary Care Physician Add. Discharge Instructions: You were seen in the emergency room asking for an ultrasound. Unfortunately we do not have the service available This hours. I recommend you go to your appoint with Dr. SANCHEZ and request this prior to your procedure. I think you will be able to accommodate this. Have the discussion of the importance to you. Scripts No Active Prescriptions or Reported Meds LUIS M BILLY DO Oct 13, 2022 05:55
[2022-10-13 05:59] VITALS: BP 122/74
[2022-10-13] MEDS ORDERED: IBUP-1773 PO (07:50)
== END 2022-10-13 05:59 | disposition home or self-care (01) ==
LOC: EDUNIT# 05:21 → ER 05:24
DX: Z00.00 Encounter for general adult medical examination without abnormal findings (principal)
CPT/HCPCS: 99281

== ENCOUNTER 2022-10-13 06:16 | Day surgery (SDC) | payer BC, MEDICAID ==
[~2022-10-13] VITALS: Ht 170.2 cm; Wt 66.3 kg
[2022-10-13] VITALS (9 sets, daily range): BP systolic 101–118; BP diastolic 52–67
[2022-10-13] MEDS ORDERED: LACTATED RINGERS 1,000 ML IV PRN (06:30)
[2022-10-13] MEDS ORDERED: proPOfol 200 MG/20 ML (DIPRIVAN) VIAL IV ONE (07:01)
[2022-10-13] MEDS ORDERED: LIDOCAINE PF 2% 5 ML (XYLOCAINE) VIAL ONE (07:01)
[2022-10-13] MEDS ORDERED: ONDANSETRON 4 MG/2 ML (SDV) Z0FRAN ONE (07:01)
[2022-10-13] MEDS ORDERED: MIDAZOLAM 2 MG/2 ML (VERSED) VIAL ONE (07:02)
[2022-10-13] MEDS ORDERED: fentaNYL INJ 100 MCG/2 ML AMP ONE (07:02)
[2022-10-13] MEDS ORDERED: IBUP-1773 PO (07:50)
--- NOTE | 2022-10-13 07:50 | Discharge Inst-Women's Service ---
Discharge Inst-Women's Serv Depart Medication/Instructions New, Converted or Re-Newed RX: Transmitted to Pharmacy Problems Reviewed?: Yes Consults/Follow Up Additional Follow Up: Yes Orders/Referrals Dr. Sanchez in 2 weeks Activity Activity: Activity as Tolerated Driving Instructions: No Driving for 1 Week NO SMOKING: NO SMOKING Nothing Inside Vagina: No Douching, No [place], No Tampons Diet Discharge Diet: No Restrictions Symptoms to Report to : Bleeding Excessive, Pain Increased, Fever Over 101 Degrees F, Vaginal Bleeding Increase, Questions/Concerns For Any Problems or Questions: Contact Your Physician SHUBHAM SANCHEZ DO Oct 13, 2022 07:50
[2022-10-13] MEDS ORDERED: ONDANSETRON 4 MG/2 ML (SDV) Z0FRAN IVP PRN (08:00)
[2022-10-13] MEDS ORDERED: HYDROcodone/APAP 5 MG/325 MG (LORTAB) TAB PO PRN (08:00)
[2022-10-13] MEDS ORDERED: KETOROLAC 30 MG/ML VIAL IVP ONE (08:00)
[2022-10-13] MEDS ORDERED: D5 LR IV SOLUTION 1,000 ML IV SCH (08:00)
[2022-10-13 08:01] LABS: BASOPHILS % (AUTO) 0 % (0-10); EOSINOPHILS % (AUTO) 1 % (0-10); HEMATOCRIT 39 % (35-52); HEMOGLOBIN 13.4 g/dL (11.5-16.0); LYMPHOCYTES # (AUTO) 1.4 10^3/uL (1.0-4.0); LYMPHOCYTES % (AUTO) 22 % (12-44); MEAN CORPUSCULAR HEMOGLOBIN 30 pg (25-34); MEAN CORPUSCULAR HGB CONC 35 g/dL (32-36); MEAN CORPUSCULAR VOLUME 86 fL (80-99); MEAN PLATELET VOLUME 9.5 fL (9.0-12.2); MONOCYTES # (AUTO) 0.4 10^3/uL (0.0-1.0); MONOCYTES % (AUTO) 6 % (0-12); NEUTROPHILS # (AUTO) 4.6 10^3/uL (1.8-7.8); NEUTROPHILS % (AUTO) 72 % (42-75); PLATELET COUNT 223 10^3/uL (130-400); WHITE BLOOD COUNT 6.4 10^3/uL (4.3-11.0)
[2022-10-13] MEDS ORDERED: SEVOFLURANE (ULTANE) 15 ML INHAL SOLN ONE (08:38)
--- NOTE | 2022-10-13 09:59 | Anesthesia-General Post-Op ---
General Patient Condition Mental Status/LOC: Same as Preop Cardiovascular: Satisfactory Nausea/Vomiting: Absent Respiratory: Satisfactory Pain: Controlled Complications: Absent Post Op Complications Complications None Follow Up Care/Instructions Patient Instructions None needed. Anesthesia/Patient Condition Patient Condition Patient is doing well, no complaints, stable vital signs, no apparent adverse anesthesia problems. No complications reported per nursing. FILIBERTO ORDAZ CRNA Oct 13, 2022 09:59
--- NOTE | 2022-10-13 12:27 | OPERATIVE REPORT ---
PREOPERATIVE DIAGNOSES: A 36-year-old female with missed . POSTOPERATIVE DIAGNOSIS: A 36-year-old female with missed . PROCEDURE: Suction D and C. SURGEON: Shubham Sanchez DO ANESTHESIA: LMA, general. ESTIMATED BLOOD LOSS: 150 mL URINE OUTPUT: 200 mL crystalloid with 900 mL lactated Ringer's solution. FINDINGS: Grossly normal-appearing external female genitalia, grossly normal-appearing cervix and vagina, moderate amount of products of conception. SPECIMEN SENT: Products of conception. INDICATIONS FOR PROCEDURE: This is a 36-year-old female is the patient who had sought initial care visit in my office earlier this week. She had a finding of intrauterine with a crown rump length measuring 8 weeks 4 days with no activity. Discussed with the patient spontaneous miscarriage versus proceeding with suction D and C. At that point, she wished to wait; however, the next day, she contacted my office and wished to proceed with suction D and C. Risks of the procedure had been discussed with the patient in detail. Again, it was reviewed in the preoperative area. Ultrasound again was performed in the preoperative area at the patient's request to confirm demise, which was again confirmed in the preoperative area. After all of his questions were answered with her present, consent was obtained. The patient was taken to the operating room. OPERATIVE DESCRIPTION IN DETAIL: Once in the operating room, anesthesia was administered and found to be adequate, was placed in dorsal lithotomy position, prepped and draped in normal sterile fashion. A timeout was performed. The bladder was drained using straight catheterization. Weighted speculum inserted to the patient's vagina. Right angle retractor was used to visualize the cervix, was grasped at 12 o'clock position using a long Allis clamp. I then gently sound the uterine cavity depth was found to be approximately 8.5 cm. I then gently dilated the cervix using Hanks dilators to maximum dilatation approximately 1 cm, at which point I advanced a #10 rigid suction Wilman curette into the uterus where I attached Wilman suction and activated to suction to a maximum suction pressure of 70 mmHg. I then performed a gentle curettage of the endometrium and rotated [place] suction curette clearing the endometrial cavity of all products of conception. This is done on several different passes until I feel that the tissue had been all retrieved. I then performed a gentle sharp curettage using a medium size endometrial curette followed by one final pass with the suction curette, after which there was minimal to little bleeding noted from the cervix. I removed all instruments from the patient's vagina. The patient tolerated the procedure well and sent to recovery area in stable condition. Lap and sponge counts were correct at the end of the procedure. Instrument counts correct as well. Job ID: [id number] DocumentID: [id number] Dictated Date: 10/13/2022 09:19:49 Tissue Recovery Technician Date: 10/13/2022 12:25:00 Dictated By: SHUBHAM SANCHEZ DO
== END 2022-10-13 10:25 ==
LOC: SDC 06:16
PROVIDERS: ATTEND Obstetrics & Gynecology
DX: O02.1 Missed abortion (principal); R35.0 Frequency of micturition; Z28.310 Unvaccinated for COVID-19
CPT/HCPCS: 36415; 85025; 86850; 86900; 86901; 87081; 88300

== ENCOUNTER → 2023-04-07 | Outpatient (CLI) | payer BC, MEDICAID ==
[~2023-04-07] MED LIST changes: +IBUP-1773 PO
--- NOTE | 2023-04-07 17:35 | Diagnostic Imaging Report ---
INDICATION: Twin , survey. TECHNIQUE: Multiple real-time grayscale images were obtained over the gravid uterus. COMPARISON: None. FINDINGS: Twin diamniotic intrauterine gestations are visualized. Baby A measured 21 weeks 3 days in size by composite measurements. Baby B measured 21 weeks 0 days in size. Both fetuses are in cephalic presentation with amniotic fluid index of 17.2. Placenta was anterior for Baby A and posterior for Baby B with no evidence of previa. Cervical length is 5 cm. Baby A had a heart rate of 149 bpm, Baby B had a heart rate of 144 bpm. Gestational sac had a normal-appearing shape. Both fetuses show normal survey, normal-appearing kidneys and bladder were seen for both fetuses. stomach appears normal for both fetuses. Intracranial ventricles appear normal. Four-chamber heart view appears normal. Views of the spine are normal. Three-vessel cord and cord insertion are normal. Biometrical measurements are as follows: Biparietal 5.12 cm, age 21 weeks 4 days. Head circumference 18.72 cm, age 21 weeks 1 days. Abdominal circumference 16.98 cm, age 22 weeks 0 days. Femur length 3.40 cm, age 20 weeks 5 days. Sonographic estimate age: 21 weeks 3 days. Sonographic estimated date of delivery: 08/15/2023. Estimated Weight: 418 gm (+/- 61 gm). LMP percentile: 98%. heart rate: 149 beats per minute. number: 1 of 2. IMPRESSION: Live twin intrauterine gestations, as above, Baby A measuring 21 weeks 3 days in size and Baby B measuring 21 weeks 0 days in size. There is no detectable abnormality for either fetus. Dictated by: Dictated on workstation # [id number]
== END ==
LOC: RAD 12:03
PROVIDERS: ATTEND Obstetrics & Gynecology
DX: Z34.03 Encounter for supervision of normal first pregnancy, third trimester (principal); Z36.9 Encounter for antenatal screening, unspecified; Z3A.21 21 weeks gestation of pregnancy
CPT/HCPCS: 76805; 76810

== ENCOUNTER 2023-07-13 12:41 | Observation (INO) | payer BC, MEDICAID ==
[~2023-07-13] VITALS: Ht 170.2 cm; Wt 89.5 kg
[2023-07-13 12:40] VITALS: BP 111/55
[2023-07-13 13:39] LABS: BILIRUBIN,URINE NEGATIVE (NEGATIVE); CLARITY,URINE SLIGHTLY CLOUDY; COLOR,URINE YELLOW; GLUCOSE, URINE (UA) NEGATIVE (NEGATIVE); KETONES,URINE NEGATIVE (NEGATIVE); LEUKOCYTE ESTERASE ,URINE NEGATIVE (NEGATIVE); NITRITE,URINE NEGATIVE (NEGATIVE); PROTEIN,URINE NEGATIVE (NEGATIVE)
[2023-07-13 13:45] LABS: BACTERIA,URINE TRACE /HPF
[2023-07-13 17:46] VITALS: BP 115/58
--- NOTE | 2023-07-13 17:57 | History & Physical-OB ---
OB - Chief Complaint & HPI Date/Time Date of Admission: Date of Admission: Date seen by a Provider: Jul 13, 2023 Time Seen by a Provider: 17:30 Chief Complaint/History OB-Reason for Admission/Chief: s/p fall Hx : 6 Hx Para: 4 Expected Date of Delivery: Aug 25, 2023 Gestational Age in Weeks: 33 Gestational Age in Days: 6 Admission Nurse Assessment Rev: Yes Other This 37-year-old G6, P4 presented to labor and delivery at 33 weeks 6 days EGA with a Diamniotic/dichorionic twin gestation. She states that this morning at about 1030 she fell face forward and struck her abdomen. She denies any loss of fluid or vaginal bleeding but states that she started radha this afternoon. She states that babies have been moving well otherwise. Allergies and Home Medications Allergies Coded Allergies: Penicillins (Verified Allergy, Severe, rash, 10/13/22) Patient Home Medication List Home Medication List Reviewed: Yes Discontinued Medications Ibuprofen (Ibuprofen) 600 Mg Tablet, 600 MG PO Q6H Prescribed by: SHUBHAM SANCHEZ on 10/13/22 0750 Last Action: Discontinued OB - History Hx of Present Care: Yes Ultrasounds: Normal mid trimester US Obstetrical Complications: Other (di/di twin gestation ) Information Induced Hypertension: No Maternal Gestational Diabetes: No Hemorrhage: No Obstetrical History Hx : 6 Hx Para: 4 Hx Total # of Abortions (Spona: 1 Delivery History Adverse Rxn to Tranfusion: No Patient Past Medical History previously healthy Social History/Family History Alcohol Use: Denies Use 2nd Hand Smoke Exposure: No Immunizations Influenza Vaccine Up-to-Date: No; Not Current OB - Admission Exam Physical Exam Vitals: Vital Signs 07/13/23 12:40 Temp 36.5 Pulse 88 Resp 18 B/P (MAP) 111/55 Pulse Ox 98 O2 Delivery Room Air HEENT: NCAT Heart: Rhythm Normal Lungs: Clear Abdomen: Gravid Extremities: Normal Reflexes: Normal Cervical Dilatation: None Heart Rate: 140's (x2) Accelerations: Accelerations Present Decelerations: No Decelerations Short Term Variability: Present Shelter Variability: Average (6-25) Contractions on Admission: 6-10 Minutes Apart Intensity: Mild Labs Laboratory Tests Test 07/13/23 12:48 Range/Units Urine Color YELLOW Urine Clarity SLIGHTLY CLOUDY Urine pH 7.0 5-9 Urine Specific [place] 1.015 L 1.016-1.022 Urine Protein NEGATIVE NEGATIVE Urine Glucose (UA) NEGATIVE NEGATIVE Urine Ketones NEGATIVE NEGATIVE Urine Nitrite NEGATIVE NEGATIVE Urine Bilirubin NEGATIVE NEGATIVE Urine Urobilinogen 1.0 < = 1.0 MG/DL Urine Leukocyte Esterase NEGATIVE NEGATIVE Urine RBC (Auto) NEGATIVE NEGATIVE Urine RBC NONE /HPF Urine WBC NONE /HPF Urine Squamous Epithelial Cells 2-5 /HPF Urine Crystals NONE /LPF Urine Bacteria TRACE /HPF Urine Casts NONE /LPF Urine Mucus NEGATIVE /LPF Urine Culture Indicated NO OB - Assessment/Plan/Diagnosis Assessment Assessment: IUP - , observation, other (twin gestation s/p fall) Admission Dx IUP at 33 weeks 6 days Diamniotic/dichorionic twin gestation Status post fall Admit for observation BT Admission Status: Observation Plan Plan: Expectant Management KAITLIN SANTOS DO Jul 13, 2023 17:57
[2023-07-13] MEDS ORDERED: BETAMETHASONE Acetate/Na Phosphate 6 MG/ML INJ ONE ×2 (18:18→18:20)
[2023-07-13] MEDS: BETAMETHASONE Acetate/Na Phosphate 6 MG/ML INJ IM SCH (18:26)
[2023-07-13 23:00] VITALS: BP 109/59
[2023-07-14 03:00] VITALS: BP 104/59
[2023-07-14 08:02] VITALS: BP 116/59
--- NOTE | 2023-07-14 08:38 | Progress Note ---
Standard Progress Note Progress Notes/Assess & Plan Date Seen by a Provider: Jul 14, 2023 Time Seen by a Provider: 08:30 Progress/Assessment & Plan Patient doing well and her contractions have subsided. She did have a few extra contractions earlier this morning. Her cervix was checked and she was 10/08/-4 she has had irritability since that time. She has had no bleeding no loss of fluid. FHR 140/145 Cervix 10/08/-4 no change [place]'s irritability irregular contractions A/P di/di twin gestation Status post fall Stable Will DC to home Precautions discussed with patient in detail Follow-up in 1 week with OB KAITLIN SANTOS DO Jul 14, 2023 08:38
--- NOTE | 2023-07-14 08:57 | Discharge Summary ---
Discharge Summary Hospital Course Problems Reviewed?: Yes Hospital Course Date of Admission: Admission Diagnosis : Family Physician/Provider: Margi Snow MD Date of Discharge: 07/14/23 Discharge Diagnosis: IUP @ 34wk di/di twin gestation s/p fall Hospital Course: This 37-year-old G5, P4 presented to labor and delivery at 33 weeks 6 days status post a fall that occurred at 10:30 in the morning on 07/13/2023. She denies any vaginal bleeding or loss of fluid but had some contractions. We monitored her heart tones were in the 140s x 2. She was having some intermittent contractions and so based on that information we continued to monitor her for 24 hours. We gave her betamethasone 12 mg x 2 doses. Throughout the night she started picking up some contractions her cervix was checked she was to 25% and minus for the presenting part (baby A is breech) she was continued to be monitored through the night and her contractions subsided she was having some irritability but irregular contractions and her cervix did not change. She was discharged home after 24 hours from the time of her fall. She was given precautions and instructions to follow-up in 1 week. Labs and Pending Lab Test: Laboratory Tests 07/13/23 12:48: Urine Color YELLOW, Urine Clarity SLIGHTLY CLOUDY, Urine pH 7.0, Urine Specific [place] 1.015L, Urine Protein NEGATIVE, Urine Glucose (UA) NEGATIVE, Urine Ketones NEGATIVE, Urine Nitrite NEGATIVE, Urine Bilirubin NEGATIVE, Urine Urobilinogen 1.0, Urine Leukocyte Esterase NEGATIVE, Urine RBC (Auto) NEGATIVE, Urine RBC NONE, Urine WBC NONE, Urine Squamous Epithelial Cells 2-5, Urine Crystals NONE, Urine Bacteria TRACE, Urine Casts NONE, Urine Mucus NEGATIVE, Urine Culture Indicated NO Home Meds Active Activity: Activity as Tolerated Driving Instructions: You May Drive NO SMOKING: NO SMOKING Nothing Inside Vagina: No Douching, No [place], No Tampons Discharge Diet: Regular Diet Symptoms to Report to : Pain Increased, Vaginal Bleeding Increase For Any Problems or Questions: Go to Emergency Room Discharge Physical Examination Allergies: Coded Allergies: Penicillins (Verified Allergy, Severe, rash, 10/13/22) Vitals & I&Os Vital Signs Date Time Temp Pulse Resp B/P (MAP) Pulse Ox O2 Delivery O2 Flow Rate FiO2 07/14/23 03:00 36.5 90 16 104/59 (74) 94 Room Air Discharge Summary Date of Admission Date of Discharge Supervisory-Addendum Brief Verification & Attestation Participated in pt care: history, MDM, physical Personally performed: exam, history, MDM, supervision of care Care discussed with: Medical Student Procedures: n/a Results interpretation: Verified all documentation I personally saw and examined this patient KAITLIN SANTOS DO Jul 14, 2023 08:56
[2023-07-14] MEDS: BETAMETHASONE Acetate/Na Phosphate 6 MG/ML INJ IM SCH (10:08)
[2023-07-14 10:35] VITALS: BP 116/59
== END 2023-07-14 10:35 | disposition home or self-care (01) ==
LOC: LDRP 12:41 → WSo 12:41 → LDRP 13:07
PROVIDERS: ADMIT Obstetrics & Gynecology; ATTEND Obstetrics & Gynecology
DX: O30.043 Twin pregnancy, dichorionic/diamniotic, third trimester (principal); Z3A.34 34 weeks gestation of pregnancy; W18.30XA Fall on same level, unspecified, initial encounter
CPT/HCPCS: 81000; 85460; 96372 ×2; G0378; G0379